=== PATIENT | male | born 1950 | race Caucasian/White ===

== ENCOUNTER → 2017-03-07 | Outpatient (CLI) | payer MEDICARE ==
[2017-03-07 09:32] LABS: CH 29.6; CHCM 33.4; HCT 49.9 % (39.0-53.0); HDW 2.96; HGB 16.4 gm/dL (13.0-17.5); MCH 29.3 pg (25.0-35.0); MCHC 32.8 g/dL (31.0-37.0); MCV 89.3 fL (80.0-100.0); Mean Platelet Volume 6.4; RBC 5.59 m/uL (4.30-5.90); RDW 14.3 % (11.5-15.5); WBC 7.1 k/uL (3.8-10.6)
[2017-03-07 09:48] LABS: ALT 27 U/L (21-72); AST 21 U/L (17-59); Alkaline Phosphatase 109 U/L (38-126); Anion Gap 17 mmol/L; Blood Urea Nitrogen 13 mg/dL (9-20); Calcium 9.4 mg/dL (8.4-10.2); Carbon Dioxide 25 mmol/L (22-30); Chloride 100 mmol/L (98-107); Cholesterol 162 mg/dL (<200); Creatine Kinase 64 U/L (55-170); Glucose 85 mg/dL (74-99); HDL Cholesterol 35 mg/dL (40-60); Non-African American GFR(MDRD) >60 (>60 ml/min/1.73 sqM); Potassium 3.7 mmol/L (3.5-5.1); Sodium 142 mmol/L (137-145); Total Bilirubin 1.1 mg/dL (0.2-1.3); Total Protein 8.3 g/dL (6.3-8.2); Triglycerides 125 mg/dL (<150)
[2017-03-07 11:54] LABS: Hemoglobin A1C 8.3 % (4.2-6.1)
== END | disposition home or self-care (01) ==
LOC: LABWHC1 06:58
PROVIDERS: ATTEND Family Medicine
DX: E11.9 Type 2 diabetes mellitus without complications (principal); I10 Essential (primary) hypertension; M19.90 Unspecified osteoarthritis, unspecified site
CPT/HCPCS: 36415; 80053; 80061; 82550; 83036; 85027

== ENCOUNTER 2017-03-28 09:15 | Emergency (ER) | payer MEDICARE ==
--- NOTE | 2017-03-28 09:58 | ED ---
General Adult HPI <SureshVincent - Last Filed: 03/28/17 15:18> - General Source: patient, RN notes reviewed Mode of arrival: ambulatory Limitations: no limitations <Los May - Last Filed: 03/28/17 18:30> - General Chief complaint: Recheck/Abnormal Lab/Rx Stated complaint: hemmeroid Time Seen by Provider: 03/28/17 09:33 - History of Present Illness Initial comments: Patient 66-year-old male who presents emergency room today with a chief complaint of a hemorrhoid. Patient does admit that over the last 2 days that increased pain. States it difficult time sleeping last night due to the pain. Patient states not seen any blood. He does admit that his had hemorrhoids in the past for this where he has to have them surgically incised. Patient does admit that he try to follow-up with his surgeon today called the office was advised come here to the emergency room for evaluation. Patient denies any other complaints or symptoms. Patient denies any recent fever, chills, shortness of breath, chest pain, back pain, abdominal pain, nausea or vomiting, numbness or tingling, dysuria or hematuria, constipation or diarrhea, headaches or visual changes, or any other complaints. (Los May) - Related Data Home Medications Medication Instructions Recorded Confirmed Aspirin 81 mg PO DAILY 03/28/17 03/28/17 Atenolol [Tenormin] 25 mg PO DAILY 03/28/17 03/28/17 Atorvastatin [Lipitor] 10 mg PO DAILY 03/28/17 03/28/17 Insulin Glargine,Hum.rec.anlog 115 unit SQ HS 03/28/17 03/28/17 [Lantus Solostar] Insulin Glulisine [Apidra Solostar] 10 units SQ W/SUPPER 03/28/17 03/28/17 Losartan/Hydrochlorothiazide 1 tab PO DAILY 03/28/17 03/28/17 [Losartan-Hctz 100-25 mg Tab] amLODIPine [Norvasc] 10 mg PO DAILY 03/28/17 03/28/17 metFORMIN HCL [Metformin HCl] 500 mg PO DAILY 03/28/17 03/28/17 Allergies Allergy/AdvReac Type Severity Reaction Status Date / Time No Known Allergies Allergy Unverified 03/28/17 09:32 Review of Systems ROS Other: All systems not noted in ROS Statement are negative. <Vincent Prince - Last Filed: 03/28/17 15:18> ROS Other: All systems not noted in ROS Statement are negative. <Los May - Last Filed: 03/28/17 18:30> ROS Statement: Those systems with pertinent positive or pertinent negative responses have been documented in the HPI. Past Medical History Past Medical History: Diabetes Mellitus, Hyperlipidemia, Hypertension History of Any Multi-Drug Resistant Organisms: None Reported Additional Past Surgical History / Comment(s): ganglion cyst Past Psychological History: No Psychological Hx Reported Smoking Status: Never smoker Past Alcohol Use History: None Reported Past Drug Use History: None Reported <Los May - Last Filed: 03/28/17 18:30> General Exam <Vincent Prince - Last Filed: 03/28/17 15:18> Limitations: no limitations <Los May - Last Filed: 03/28/17 18:30> - General Exam Comments Initial Comments: General: The patient is awake and alert, in no distress, and does not appear acutely ill. Eye: Pupils are equal, round and reactive to light, extra-ocular movements are intact. No nystagmus. There is normal conjunctiva bilaterally. No signs of icterus. Ears, nose, mouth and throat: There are moist mucous membranes and no oral lesions. Neck: The neck is supple, there is no tenderness or JVD. Cardiovascular: There is a regular rate and rhythm. No murmur, rub or gallop is appreciated. Respiratory: Lungs are clear to auscultation, respirations are non-labored, breath sounds are equal. No wheezes, stridor, rales, or rhonchi. Gastrointestinal: Soft, non-distended, non-tender abdomen without masses or organomegaly noted. There is no rebound or guarding present. No CVA tenderness. Bowel sounds are unremarkable. Musculoskeletal: Normal ROM, no tenderness. Strength 5/5. Sensation intact. Pulses equal bilaterally 2+. Neurological: A&O x 3. CN II-XII intact, There are no obvious motor or sensory deficits. Coordination appears grossly intact. Speech is normal. Skin: Skin is warm and dry and no rashes or lesions are noted. Psychiatric: Cooperative, appropriate mood & affect, normal judgment. : Patient does have large hemorrhoid nonthrombosed located on the right side measures approximately 2 cm. (Los May) Course <Vincent Prince - Last Filed: 03/28/17 15:18> <Los May - Last Filed: 03/28/17 18:30> Vital Signs 03/28/17 03/28/17 03/28/17 09:17 14:05 15:16 Temperature 99.2 F 97.9 F 98.2 F Pulse Rate 89 74 67 Respiratory 18 16 18 Rate Blood Pressure 162/77 156/78 154/78 O2 Sat by Pulse 96 95 96 Oximetry 03/28/17 16:38 Temperature Pulse Rate 81 Respiratory 18 Rate Blood Pressure 134/61 O2 Sat by Pulse 95 Oximetry - Reevaluation(s) Reevaluation #1: 03/28/17 11:22 Patient was earlier reexamined by myself, Dr. Prince. Patient does have a large right hemorrhoid approximately 3 cm at the 3 o'clock position without tenderness. Dr. Hinds has been paged. Dr. Dennis is covering as is currently in surgery. 03/28/17 15:18 Case was discussed with Dr. Dennis who will come evaluate the patient (Vincent Prince) Medical Decision Making <Vincent Prince - Last Filed: 03/28/17 15:18> <Los May - Last Filed: 03/28/17 18:30> - Medical Decision Making Patient was seen in the emergency room by Dr. Joel who did drain patient's hemorrhoid. Patient is feeling better. Patient will be discharged home advised follow-up with surgeon as directed. (Los May) Disposition <Vincent Prince - Last Filed: 03/28/17 15:18> Time of Disposition: 18:29 <Los May - Last Filed: 03/28/17 18:30> Clinical Impression: Hemorrhoid Disposition: HOME SELF-CARE Condition: Good Instructions: Hemorrhoids (ED) Additional Instructions: Please follow-up with surgeon as discussed here in the emergency room. Please return for any other concerns. Referrals: Blue Burks MD [Primary Care Provider] - 1-2 days Sofie Joel MD [STAFF PHYSICIAN] - 1-2 days
[2017-03-28 15:17] VITALS: RESP 18
--- NOTE | 2017-03-28 18:35 | P.PN ---
Progress Note - Text Patient seen and evaluated. Verbal consent obtained to proceed with incision of thrombosed hemorrhoid right lateral cushion. Blood loss minimal. Blood clot evaluated. Patient had immediate relief postprocedure. Patient to follow- up in the office in 2 weeks. Sitz baths advised. Bacitracin ointment to wound.
[2017-03-28 18:46] VITALS: BP 142/65; PULSE 71; TEMP 97.9
--- NOTE | 2017-03-28 19:59 | P.GSCN ---
History of Present Illness Consult date: 03/28/17 Reason for Consult: Thrombosed hemorrhoid Requesting physician: Vincent Prince History of present illness: The patient is a 66-year-old gentleman who presented with overnight history of increased discomfort while sleeping from a thrombosed hemorrhoid. He has previous thrombosed hemorrhoids excised at 2-3 times in the last 10 years. He initially called his provider's office and then was redirected to emergency room given the severity of his pain as well as severity of his presentation. He denies taking any anticoagulants. Now her presents to the emergency room for urgent surgical intervention. Review of Systems REVIEW OF ORGAN SYSTEMS: CONSTITUTIONAL: Denies any fever or chills. Denies recent weight loss or weight gain. HEENT: Denies any trouble with vision, hearing or nosebleeds. No difficulty swallowing. LYMPHATIC: The patient denies any lumps and bumps around the neck. ENDOCRINE: Denies any thyroid disorders. Has blood sugar glucose intolerance. RESPIRATORY: Denies pneumonia. Denies any troubles with breathing or dyspnea on exertion. CARDIOVASCULAR: Denies any chest pain, palpitations, or recent heart attacks. GASTROINTESTINAL: Previous history of multiple thrombosed hemorrhoids for the past with excision. GENITOURINARY: Denies any blood in urine or increased urinary frequency. MUSCULOSKELETAL: Has back pain, stiffness, joint arthritis. NEUROLOGIC: Denies any numbness or tingling along the distal extremities. No seizure disorders or headaches. PSYCHIATRIC: Denies depression or suidical ideation. HEMATOLOGIC: Denies any abnormal bleeding or bruising. Past Medical History Past Medical History: Diabetes Mellitus, Hyperlipidemia, Hypertension History of Any Multi-Drug Resistant Organisms: None Reported Additional Past Surgical History / Comment(s): ganglion cyst Past Psychological History: No Psychological Hx Reported Smoking Status: Never smoker Past Alcohol Use History: None Reported Past Drug Use History: None Reported Medications and Allergies Home Medications Medication Instructions Recorded Confirmed Type Aspirin 81 mg PO DAILY 03/28/17 03/28/17 History Atenolol [Tenormin] 25 mg PO DAILY 03/28/17 03/28/17 History Atorvastatin [Lipitor] 10 mg PO DAILY 03/28/17 03/28/17 History Insulin Glargine,Hum.rec.anlog 115 unit SQ HS 03/28/17 03/28/17 History [Lantus Solostar] Insulin Glulisine [Apidra Solostar] 10 units SQ W/SUPPER 03/28/17 03/28/17 History Losartan/Hydrochlorothiazide 1 tab PO DAILY 03/28/17 03/28/17 History [Losartan-Hctz 100-25 mg Tab] amLODIPine [Norvasc] 10 mg PO DAILY 03/28/17 03/28/17 History metFORMIN HCL [Metformin HCl] 500 mg PO DAILY 03/28/17 03/28/17 History Allergies Allergy/AdvReac Type Severity Reaction Status Date / Time No Known Allergies Allergy Unverified 03/28/17 09:32 Surgical - Exam Vital Signs Temp Pulse Resp BP Pulse Ox 99.2 F 89 18 162/77 96 03/28/17 09:17 03/28/17 09:17 03/28/17 09:03/28/17 09:03/28/17 09:17 GENERAL: Well developed and in moderate distress from his anorectal pain. HEENT: No sclera icterus. Extraocular movements grossly intact. Moist buccal mucosa. Head is atraumatic, normocephalic. Hears conversational speech. No nasal drainage. NECK: Supple without lymphadenopathy. No JV distention. CHEST: Non-labored respirations and equal bilateral excursions. CARDIOVASCULAR: Regular rate and rhythm. Palpable 2+ radial pulses. ABDOMEN: Soft, nontender. Nondistended. MUSCULOSKELETAL: No clubbing, cyanosis or edema. NEUROLOGIC: No focal or lateralizing signs. PSYCH: Appropriate affect. Alert and oriented to person, place and time. RECTUM: 3.5 cm right lateral thrombosed hemorrhoid without active bleeding. No anal fissures. Assessment and Plan (1) Grade IV hemorrhoids Status: Acute (2) Thrombosed external hemorrhoids Status: Acute (3) Diabetes type 2, controlled Status: Acute (4) Morbid obesity due to excess calories Status: Acute (5) BMI 35.0-35.9,adult Status: Acute (6) Hypertensive heart disease Status: Acute (7) Anorectal pain Status: Acute Plan: 1. I discussed benefits and risks of proceeding with an incision and drainage of his thrombosed hemorrhoid. Given the severity of his pain he had immediately given verbal consent to proceed. 2. Sitz bath twice daily recommended postprocedure. 3. Light activities to follow for 1 week. 4. Follow-up in the office in 1-2 weeks.
--- NOTE | 2017-03-28 20:06 | P.PCN ---
Date of Procedure: 03/28/17 Preoperative Diagnosis: Postoperative Diagnosis: Procedure(s) Performed: Implants: Indications for Procedure: Operative Findings: Description of Procedure: SURGEON: SOFIE JOEL MD WOOL SORTER: NONE. PREOPERATIVE DIAGNOSES: 1. Grade 4 complicated hemorrhoid. 2. Thrombosed external hemorrhoid. 3. Anorectal pain. POSTOPERATIVE DIAGNOSES: 1. Grade 4 complicated hemorrhoid. 2. Thrombosed external hemorrhoid. 3. Anorectal pain. PROCEDURE PERFORMED: 1. Incision and drainage of thrombosed hemorrhoid, right lateral cushion. ANESTHESIA: 3 mL 1% lidocaine plain. ESTIMATED BLOOD LOSS: 1 mL SPECIMENS: NONE. COMPLICATIONS: NONE. FINDINGS: 1. 3.5 cm external thrombosed hemorrhoid along right lateral cushion with 3-5 mL blood clot drained. INDICATIONS: The patient is a 66-year-old male who comes in with acute anorectal pain of over 24 hours. He reports severity of pain requiring urgent intervention. He reports thrombosed hemorrhoid. Benefits and risks were described including bleeding, infection and pain. Verbal consent was obtained. DESCRIPTION: After verbal consent, the patient was placed in right lateral decubitus position. The perineum was dressed with Betadine and 4 x 4 gauze and a standard sterile fashion. The hemorrhoidal tissue along the right lateral cushion was anesthetized with 3 mL of 1% lidocaine plain. After adequate analgesia, a #11 blade cruciate incision was made over the thrombosed hemorrhoid. Immediately approximately 5 mL of quite blood clot was drained from the thrombosed hemorrhoid. The patient had immediate relief. He had tolerated the procedure well. Betadine with 4 x 4 packing was placed. Postprocedure discharge instructions were reviewed including use of sitz bath and bacitracin ointment. Patient will follow-up in the office in 1-2 weeks. Plan - Discharge Summary Discharge Medication List Aspirin 81 mg PO DAILY 03/28/17 [History] Atenolol [Tenormin] 25 mg PO DAILY 03/28/17 [History] Atorvastatin [Lipitor] 10 mg PO DAILY 03/28/17 [History] Insulin Glargine,Hum.rec.anlog [Lantus Solostar] 115 unit SQ HS 03/28/17 [ History] Insulin Glulisine [Apidra Solostar] 10 units SQ W/SUPPER 03/28/17 [History] Losartan/Hydrochlorothiazide [Losartan-Hctz 100-25 mg Tab] 1 tab PO DAILY [History] amLODIPine [Norvasc] 10 mg PO DAILY 03/28/17 [History] metFORMIN HCL [Metformin HCl] 500 mg PO DAILY 03/28/17 [History] Follow up Appointment(s)/Referral(s): Sofie Joel MD [STAFF PHYSICIAN] - 1-2 days Blue Burks MD [Primary Care Provider] - 1-2 days Patient Instructions/Handouts: Hemorrhoids (ED) Activity/Diet/Wound Care/Special Instructions: Please follow-up with surgeon as discussed here in the emergency room. Please return for any other concerns. Sitz bath twice daily and after bowel movement. May add bacitracin ointment twice daily after cleansing area with soap and water. May remove packing after first bowel movement. Discharge Disposition: HOME SELF-CARE
== END 2017-03-28 18:46 | disposition home or self-care (01) ==
LOC: EC 09:15
DX: K64.8 Other hemorrhoids (principal); E11.9 Type 2 diabetes mellitus without complications; E78.5 Hyperlipidemia, unspecified; I10 Essential (primary) hypertension; Z79.82 Long term (current) use of aspirin; Z79.4 Long term (current) use of insulin; Z79.899 Other long term (current) drug therapy
CPT/HCPCS: 46083; 99283

== ENCOUNTER 2017-04-01 15:25 | Observation (INO) | payer MEDICARE ==
[2017-04-01 17:14] VITALS: BMI 35.5
[2017-04-01] MEDS ORDERED: LACTATED RINGERS 1,000 ML IV ONE (18:51)
[2017-04-01] MEDS ORDERED: DEXAMETHASONE SOD PHOS (MDV) 100 MG/10 ML VIAL ONE (19:13)
[2017-04-01] MEDS ORDERED: MIDAZOLAM 2 MG/2 ML VIAL ONE (19:13)
[2017-04-01] MEDS ORDERED: ONDANSETRON 4 MG/2 ML VIAL ONE (19:13)
[2017-04-01] MEDS ORDERED: PROPOFOL 10 MG/ML 20 ML VIAL IV ONE (19:13)
[2017-04-01] MEDS ORDERED: fentaNYL (PF) 50 MCG/ML 2 ML AMP ONE (19:13)
[2017-04-01] MEDS ORDERED: LIDOCAINE 1% INJ 10MG/ML (20 ML MDV) ONE (19:13)
[2017-04-01] MEDS ORDERED: SUCCINYLCHOLINE CHLORIDE 100 MG/5 ML SYR IV ONE (19:13)
[2017-04-01] MEDS ORDERED: SODIUM CHLORIDE 0.9% 50 ML with ceFAZolin 2,000 MG IV ONE ×2 (19:30)
[2017-04-01] MEDS ORDERED: LIDOCAINE 1% (PF) 10 MG/ML (30 ML SDV) SQ ONE (19:39)
--- NOTE | 2017-04-01 19:50 | P.OP ---
Date of Procedure: 04/01/17 Preoperative Diagnosis: Thrombosed hemorrhoid Postoperative Diagnosis: Same Procedure(s) Performed: Thrombectomy Implants: Anesthesia: RONAN Surgeon: Echo Hinds Estimated Blood Loss (ml): 5 Pathology: other (Hemorrhoidal skin, thrombus) Condition: stable Disposition: PACU Indications for Procedure: Painful thrombosed hemorrhoid Operative Findings: Thrombosed hemorrhoid Description of Procedure: Patient is a 66-year-old gentleman who was initially seen in the emergency room approximately 3 days ago for a thrombectomy was performed. Despite this he had continued swelling of the area of the hemorrhoids and was seen in the office earlier today where it was felt that he should undergo a thrombectomy in the operating room. The patient was taken to the operating room and following induction of anesthesia he was placed in the jackknife position. The proximal were taped open and the area was prepped and draped in a sterile fashion. The thrombosed hemorrhoid was in the right posterior lateral area. Incision was made over the skin of the thrombosed hemorrhoid and a portion of the skin was removed. A large clot was removed. The clot was approximately 3 cm x 1.5-2 cm in size. The wound was well irrigated and several smaller clots were identified and removed as well in the hemorrhoidal tissue. After being assured that hemostasis was attained using the electrocautery device the wound was again irrigated. At this point the wound was packed using iodoform gauze and a Vaseline gauze over this. The patient tolerated the procedure in stable condition. All instrument and sponge counts were correct at the end of the case.
--- NOTE | 2017-04-01 19:52 | P.DS ---
Providers Date of admission: 04/01/17 16:20 Attending physician: Thi Lou Primary care physician: Stated None Plan - Discharge Summary Discharge Medication List Aspirin 81 mg PO DAILY 03/28/17 [History] Atenolol [Tenormin] 25 mg PO DAILY 03/28/17 [History] Atorvastatin [Lipitor] 10 mg PO DAILY 03/28/17 [History] Insulin Glargine,Hum.rec.anlog [Lantus Solostar] 115 unit SQ HS 03/28/17 [ History] Insulin Glulisine [Apidra Solostar] 10 units SQ W/SUPPER 03/28/17 [History] Losartan/Hydrochlorothiazide [Losartan-Hctz 100-25 mg Tab] 1 tab PO DAILY [History] amLODIPine [Norvasc] 10 mg PO DAILY 03/28/17 [History] metFORMIN HCL [Metformin HCl] 500 mg PO DAILY 03/28/17 [History] Follow up Appointment(s)/Referral(s): Echo Hinds MD [STAFF PHYSICIAN] - 1 Week Activity/Diet/Wound Care/Special Instructions: Sitz baths twice a day Discharge Disposition: HOME SELF-CARE
[2017-04-01 20:09] LABS: Glucose,Whole Blood 168 mg/dL (75-99)
[2017-04-01] MEDS ORDERED: KETOROLAC 30 MG/ML 1 ML VIAL IVP ONE (20:10)
[2017-04-02 00:29] VITALS: RESP 18; TEMP 98.6
[2017-04-02 00:32] VITALS: BP 149/79; PULSE 72
== END 2017-04-02 00:34 | disposition home or self-care (01) ==
LOC: 5MS5E 16:20
PROVIDERS: ADMIT Surgery; ATTEND Surgery
DX: K64.5 Perianal venous thrombosis (principal); Z79.899 Other long term (current) drug therapy; Z79.82 Long term (current) use of aspirin; Z79.4 Long term (current) use of insulin; Z79.84 Long term (current) use of oral hypoglycemic drugs; E11.9 Type 2 diabetes mellitus without complications; I10 Essential (primary) hypertension
CPT/HCPCS: 88304; 46083; G0379; G0378; J2250; J2405; J2001 ×2; J3010; J1885; J0690; J1100; J0330; J2704

== ENCOUNTER → 2017-08-25 | Outpatient (CLI) | payer MEDICARE ==
[2017-08-25 08:11] LABS: CH 31.2; HCT 47.1 % (39.0-53.0); HDW 2.93; HGB 15.9 gm/dL (13.0-17.5); MCH 31.3 pg (25.0-35.0); MCHC 33.8 g/dL (31.0-37.0); MCV 92.5 fL (80.0-100.0); Mean Platelet Volume 6.8; RBC 5.09 m/uL (4.30-5.90); RDW 15.4 % (11.5-15.5); WBC 5.7 k/uL (3.8-10.6)
[2017-08-25 10:52] LABS: Hemoglobin A1C 8.4 % (4.2-6.1)
[2017-08-25 12:54] LABS: ALT 26 U/L (21-72); AST 15 U/L (17-59); Alkaline Phosphatase 115 U/L (38-126); Anion Gap 12 mmol/L; Blood Urea Nitrogen 13 mg/dL (9-20); Calcium 9.5 mg/dL (8.4-10.2); Carbon Dioxide 28 mmol/L (22-30); Chloride 101 mmol/L (98-107); Cholesterol 149 mg/dL (<200); Glucose 106 mg/dL (74-99); HDL Cholesterol 28 mg/dL (40-60); Non-African American GFR(MDRD) >60 (>60 ml/min/1.73 sqM); Potassium 3.7 mmol/L (3.5-5.1); Sodium 141 mmol/L (137-145); Total Bilirubin 0.8 mg/dL (0.2-1.3)
[2017-08-25 13:09] LABS: Prostate Specific Antigen 1.65 ng/mL (0.00-4.00)
== END | disposition home or self-care (01) ==
LOC: LABWHC1 07:03
PROVIDERS: ATTEND Family Medicine
DX: I10 Essential (primary) hypertension (principal); R35.1 Nocturia; M25.50 Pain in unspecified joint; E11.9 Type 2 diabetes mellitus without complications; E78.00 Pure hypercholesterolemia, unspecified
CPT/HCPCS: 36415; 80053; 80061; 83036; 84153; 85027

== ENCOUNTER → 2018-02-24 | Outpatient (CLI) | payer MEDICARE ==
[2018-02-24 08:05] LABS: HCT 46.8 % (39.0-53.0); HGB 15.9 gm/dL (13.0-17.5); MCHC 33.9 g/dL (31.0-37.0); MCV 85.6 fL (80.0-100.0); Mean Platelet Volume 6.6; Platelet Count 356 k/uL (150-450); RBC 5.47 m/uL (4.30-5.90); RDW 13.8 % (11.5-15.5); WBC 7.8 k/uL (3.8-10.6)
[2018-02-24 10:11] LABS: ALT 23 U/L (21-72); AST 17 U/L (17-59); Alkaline Phosphatase 107 U/L (38-126); Anion Gap 15 mmol/L; Blood Urea Nitrogen 13 mg/dL (9-20); Calcium 9.8 mg/dL (8.4-10.2); Carbon Dioxide 31 mmol/L (22-30); Chloride 99 mmol/L (98-107); Cholesterol 139 mg/dL (<200); Creatine Kinase 69 U/L (55-170); Glucose 67 mg/dL (74-99); HDL Cholesterol 31 mg/dL (40-60); LDL Cholesterol,Calculated 91 mg/dL (0-99); Potassium 3.7 mmol/L (3.5-5.1); Sodium 145 mmol/L (137-145); Total Bilirubin 0.8 mg/dL (0.2-1.3); Total Protein 6.8 g/dL (6.3-8.2); Triglycerides 87 mg/dL (<150)
[2018-02-24 10:39] LABS: Prostate Specific Antigen 2.13 ng/mL (0.00-4.00)
== END | disposition home or self-care (01) ==
LOC: LABWHC1 06:48
PROVIDERS: ATTEND Family Medicine
DX: I10 Essential (primary) hypertension (principal); E11.9 Type 2 diabetes mellitus without complications; E78.5 Hyperlipidemia, unspecified; R35.1 Nocturia; R07.9 Chest pain, unspecified
CPT/HCPCS: 36415; 80053; 80061; 82550; 83036; 84153; 84443; 85027

== ENCOUNTER 2018-04-07 09:27 | Day surgery (SDC) | payer MEDICARE ==
[2018-04-06 08:52] VITALS: BMI 33.9
[~2018-04-07 09:27] MED LIST: LACTATED RINGERS 1,000 ML IV SCH
[2018-04-07 10:17] VITALS: TEMP 98.6
[2018-04-07] MEDS ORDERED: LIDOCAINE 1% 20 ML VIAL (10MG/ML) FOR IV START INTRADERMA ONE (10:17)
[2018-04-07 10:22] LABS: Glucose,Whole Blood 100 mg/dL (75-99)
[2018-04-07] MEDS ORDERED: PROPOFOL 10 MG/ML 20 ML VIAL IV ONE (10:31)
--- NOTE | 2018-04-07 11:09 | P.PCN ---
Date of Procedure: 04/07/18 Procedure(s) Performed: Procedure: Total colonoscopy. Preoperative diagnosis: Screening for neoplasia. Postoperative diagnosis: Sigmoid diverticulosis with no evidence of acute diverticulitis, strictures, polyps or cancer. Preparation: HalfLytely prep. Sedation: Was provided by anesthesia. Brief clinical history: The patient is a 67-year-old male who is scheduled for this evaluation for screening for neoplasia. He had a prior exam more than 8 years ago. He has no abdominal complaints, bleeding or anemia. Procedure: With the patient on his left lateral decubitus position and after informed consent and adequate sedation, the perianal area was inspected and it did not show any fissures or fistulas. There were no masses felt on digital rectal examination. The Olympus CF Q160 L videocolonoscope was then inserted in the rectum in the usual fashion and was advanced without difficulty in the sigmoid and then all the way to the cecum. There was multiple diverticular orifices seen scattered in the sigmoid with no evidence of acute diverticulitis or strictures. No polyps or tumors were seen. The mucosa appeared healthy. I retroflexed the endoscope in the rectum before the endoscope was withdrawn. The patient tolerated the procedure well. Plan: The patient was reassured. Discussed dietary measures. He will follow- up with you as planned and I recommended repeat exam in 10 years.
[2018-04-07 11:40] VITALS: BP 125/73; PULSE 70; RESP 20
== END 2018-04-07 12:06 | disposition home or self-care (01) ==
LOC: ORWHC2ENDO 09:27
DX: Z12.11 Encounter for screening for malignant neoplasm of colon (principal); K57.30 Diverticulosis of large intestine without perforation or abscess without bleeding; E11.9 Type 2 diabetes mellitus without complications; E78.5 Hyperlipidemia, unspecified; I10 Essential (primary) hypertension; Z79.84 Long term (current) use of oral hypoglycemic drugs; Z79.82 Long term (current) use of aspirin; Z79.899 Other long term (current) drug therapy
CPT/HCPCS: J2704; G0121

== ENCOUNTER → 2018-08-26 | Outpatient (CLI) | payer MEDICARE ==
[2018-08-26 07:49] LABS: HCT 43.1 % (39.0-53.0); HGB 14.1 gm/dL (13.0-17.5); MCHC 32.6 g/dL (31.0-37.0); MCV 89.1 fL (80.0-100.0); Mean Platelet Volume 6.3; Platelet Count 327 k/uL (150-450); RBC 4.84 m/uL (4.30-5.90); RDW 14.1 % (11.5-15.5)
[2018-08-26 17:48] LABS: Albumin 4.2 g/dL (3.80-4.90); Albumin/Globulin Ratio 1.91 (1.20-2.10); Anion Gap 5.3 mmol/L (4.00-12.00); Calcium 9.4 mg/dL (8.7-10.3); Carbon Dioxide 33.7 mmol/L (21.6-31.8); Globulin 2.2 g/dL (2.1-3.7); Potassium 4.5 mmol/L (3.5-5.5); Total Bilirubin 0.7 mg/dL (0.2-1.2); Total Protein 6.4 g/dL (6.2-8.2)
[2018-08-26 17:55] LABS: Prostate Specific Antigen 1.8 ng/mL (0.0-4.5)
[2018-08-26 20:38] LABS: Hemoglobin A1C 7.6 % (4.0-6.0)
== END | disposition home or self-care (01) ==
LOC: LABWHC1 06:51
PROVIDERS: ATTEND Family Medicine
DX: E11.9 Type 2 diabetes mellitus without complications (principal); E78.00 Pure hypercholesterolemia, unspecified; R35.1 Nocturia; I10 Essential (primary) hypertension
CPT/HCPCS: 36415; 80053; 80061; 82550; 83036; 84153; 84443; 85027

== ENCOUNTER → 2019-01-28 | Outpatient (CLI) | payer MEDICARE ==
[2019-01-28 08:30] LABS: Basophils % (A) 1 %; Eosinophils # (A) 0.2 k/uL (0-0.7); Eosinophils % (A) 2 %; HCT 47.4 % (39.0-53.0); HGB 15.2 gm/dL (13.0-17.5); Lymphocytes # (A) 2.1 k/uL (1.0-4.8); Lymphocytes % (A) 27 %; MCH 28.4 pg (25.0-35.0); MCHC 32.1 g/dL (31.0-37.0); MCV 88.5 fL (80.0-100.0); Mean Platelet Volume 6.7; Monocytes # (A) 0.5 k/uL (0-1.0); Monocytes % (A) 6 %; Neutrophils # (A) 4.8 k/uL (1.3-7.7); Neutrophils % (A) 62 %; Platelet Count 310 k/uL (150-450); RBC 5.35 m/uL (4.30-5.90); RDW 14.7 % (11.5-15.5); WBC 7.8 k/uL (3.8-10.6)
[2019-01-28 11:07] LABS: Anion Gap 9 mmol/L; Blood Urea Nitrogen 11 mg/dL (9-20); Calcium 9.3 mg/dL (8.4-10.2); Carbon Dioxide 29 mmol/L (22-30); Chloride 100 mmol/L (98-107); Glucose 182 mg/dL (74-99); Sodium 138 mmol/L (137-145)
== END | disposition home or self-care (01) ==
LOC: LABPAT 07:22
PROVIDERS: ATTEND Urology
DX: Z01.812 Encounter for preprocedural laboratory examination (principal); Z01.818 Encounter for other preprocedural examination; N52.1 Erectile dysfunction due to diseases classified elsewhere; I10 Essential (primary) hypertension; E11.9 Type 2 diabetes mellitus without complications
CPT/HCPCS: 36415; 80048; 85025; 93005

== ENCOUNTER 2019-02-03 07:16 | Inpatient (IN) | payer MEDICARE ==
[2019-01-25 16:06] VITALS: BMI 34.5
[~2019-02-03 07:16] MED LIST changes: +GENTAMICIN 180 MG in SODIUM CHLORIDE 0.9% 100 ML IVPB ONE; +LEVOFLOXACIN 500MG-D5W PMX 500 MG in DEXTROSE/WATER 1 100ML.BAG IVPB ONE
[2019-02-03 07:57] LABS: Glucose,Whole Blood 141 mg/dL (75-99)
[2019-02-03] MEDS ORDERED: LIDOCAINE 1% 20 ML VIAL (10MG/ML) FOR IV START INTRADERMA ONE (08:00)
[2019-02-03] MEDS ORDERED: ONDANSETRON 4 MG/2 ML VIAL IVP ONE (08:01)
[2019-02-03] MEDS ORDERED: DEXAMETHASONE SOD PHOSPHATE 10 MG/ML 1 ML VIAL IV ONE (08:02)
[2019-02-03] MEDS ORDERED: SCOPOLAMINE 1.5MG/72HR PATCH TRANSDERM ONE (08:04)
--- NOTE | 2019-02-03 08:11 | P.GSHP ---
History of Present Illness H&P Date: 02/01/19 Chief Complaint: Erectile dysfunction The patient is a 68-year-old male with a history of erectile dysfunction which dates back at least 15 years. The patient has tried Cialis which was ineffective. He has also tried penile vasoactive injection therapy using a combination of prostaglandin E1, papaverine and Regitine without improvement. After reviewing treatment options the patient has elected to proceed with placement of an inflatable penile prosthesis for treatment of his erectile dysfunction. His erectile dysfunction is felt to be related to long-standing diabetes mellitus and hypertension. - Constitutional Constitutional: Denies weight gain, Denies weight loss - Cardiovascular Cardiovascular: Denies chest pain, Denies dyspnea on exertion, Denies leg edema, Denies palpitations, Denies shortness of breath - Respiratory Respiratory: Denies cough, Denies wheezing - Gastrointestinal Gastrointestinal: Denies abdominal pain, Denies change in bowel habits - Genitourinary (Male) Genitourinary: Reports as per HPI Past Medical History Past Medical History: Diabetes Mellitus, Hyperlipidemia, Hypertension History of Any Multi-Drug Resistant Organisms: None Reported Additional Past Surgical History / Comment(s): ganglion cyst, hemorrhoidectomy Past Anesthesia/Blood Transfusion Reactions: Previous Problems w/ Anesthesia Additional Past Anesthesia/Blood Transfusion Reaction / Comment(s): severe stomach cramping after hemorrhoid surgery for 24 hours, thinks was something to do w/anesthesia he was given Smoking Status: Never smoker - Past Family History Mother Family Medical History: No Reported History Medications and Allergies Home Medications Medication Instructions Recorded Confirmed Type Aspirin 81 mg PO DAILY 03/28/17 01/25/19 History Atenolol [Tenormin] 25 mg PO DAILY 03/28/17 01/25/19 History Atorvastatin [Lipitor] 10 mg PO DAILY 03/28/17 01/25/19 History Losartan/Hydrochlorothiazide 1 tab PO DAILY 03/28/17 01/25/19 History [Losartan-Hctz 100-25 mg Tab] metFORMIN HCL [Metformin HCl] 500 mg PO DAILY 03/28/17 01/25/19 History Multivitamin [Men's Multi-Vitamin] 1 each PO DAILY 04/06/18 01/25/19 History Fluticasone Nasal Norris [Flonase 2 spr EA NOSTRIL DAILY 01/25/19 01/25/19 History Nasal Norris] Insulin Glargine [Lantus] 102 unit SQ PC-LUNCH 01/25/19 01/25/19 History Insulin Glulisine [Apidra] 10 unit SQ PC-TID PRN 01/25/19 01/25/19 History amLODIPine [Norvasc] 10 mg PO DAILY 01/25/19 01/25/19 History Allergies Allergy/AdvReac Type Severity Reaction Status Date / Time No Known Allergies Allergy Verified 01/25/19 15:51 Surgical - Exam - General well developed, well nourished, no distress, obese - ENT no hearing loss - Neck no masses, no lymphadectomy - Respiratory normal expansion, clear to auscultation - Cardiovascular Rhythm: regular Abnormal Heart Sounds: no systolic murmur, no diastolic murmur - Abdomen Abdomen: soft, non tender, no organomegaly Hernia: none - Genitourinary normal penis with no external lesions, testicles non-tender Assessment and Plan (1) Male sexual dysfunction Narrative/Plan: The patient will undergo placement of an inflatable penile prosthesis performed under general anesthesia. He is aware of the operative risks which include a nesthesia, pain, bleeding, infection or erosion of the prosthesis which may require removal, and future mechanical dysfunction which may require revision. Status: Acute Code(s): N53.9 - UNSPECIFIED MALE SEXUAL DYSFUNCTION SNOMED Code(s): 5594993
[2019-02-03] MEDS ORDERED: SUCCINYLCHOLINE CHLORIDE 100 MG/5 ML SYR IV ONE (08:19)
[2019-02-03] MEDS ORDERED: LIDOCAINE 1% INJ 10MG/ML (20 ML MDV) ONE (08:19)
[2019-02-03] MEDS ORDERED: fentaNYL (PF) 50 MCG/ML 2 ML AMP ONE (08:19)
[2019-02-03] MEDS ORDERED: MIDAZOLAM 2 MG/2 ML VIAL ONE (08:19)
[2019-02-03] MEDS ORDERED: KETOROLAC 30 MG/ML 1 ML VIAL ONE (08:19)
[2019-02-03] MEDS ORDERED: ePHEDrine SULFATE/0.9% NACL/PF 50 MG/5 ML SYRINGE IV ONE (08:19)
[2019-02-03] MEDS ORDERED: PROPOFOL 10 MG/ML 20 ML VIAL IV ONE (08:19)
[2019-02-03] MEDS ORDERED: ceFAZolin 1,000 MG, GENTAMICIN 80 MG in SODIUM CHLORIDE 0.9% 1,000 ML IRRIGATION ONE (09:01)
--- NOTE | 2019-02-03 10:43 | P.OP ---
Date of Procedure: 02/03/19 Preoperative Diagnosis: Erectile dysfunction secondary to diabetes mellitus Postoperative Diagnosis: Erectile dysfunction secondary to diabetes mellitus Procedure(s) Performed: Placement of inflatable penile prosthesis Implants: [employer] CX inflatable penile prosthesis-18 cm with 2 cm rear tip extenders Anesthesia: RONAN Surgeon: Warren Monahan Insurance And Benefits Clerk #1: Blue Rivas Estimated Blood Loss (ml): 30 Pathology: none sent Condition: stable Disposition: PACU Indications for Procedure: The patient is a 68-year-old male with a history of erectile dysfunction dating back over 10 years. He has failed oral treatments as well as penile injection therapy. After reviewing treatment options the patient has elected to proceed with placement of an inflatable penile prosthesis. Description of Procedure: The patient was taken the operating suite where adequate general anesthesia via orotracheal intubation was instituted. The patient was placed in the supine position. Pneumatic compression stockings were applied to the lower legs. The hair in the suprapubic area and at the penile scrotal junction was clipped. The scrotum and groins and lower abdomen were prepped with Betadine soap, sprayed with Betadine solution and draped in a sterile fashion. A lower abdominal midline incision was made. Bleeding vessels were controlled using electrocautery. The base of the penis was developed using blunt and sharp dissection. The tunica albuginea of the right and left corporal bodies were exposed superior to the penopubic junction. 2 cm longitudinal incisions were made in the right and left corporal bodies distal to the penopubic junction. Minimal bleeding occurred from the corporal bodies consistent with his underlying erectile dysfunction. Corporal bodies were dilated proximally and distally with Hegar dilators to 13-Azerbaijani. Both corporal bodies measured 10 cm from the incision proximally and distally. A [employer] CX inflatable penile prosthesis with 18 cm corporal bodies and 2 cm rear-tip extenders was selected. The right and left inflatable cylinders were inserted into the respective corporal bodies using the insertion tool. The corporotomies were then closed using running 3-0 PDS. The linea alba was incised superior to the pubis. The rectus muscles were retracted laterally and the pubovesical space was developed using blunt dissection. The fluid reservoir was placed in the retropubic space and the tubing was tunneled out through the abdominal wall medial to the right inguinal canal. 65 mL of sterile saline was placed in the reservoir and the reservoir was checked to ensure that the fluid was not under pressure. The linea alba was then reapproximated using interrupted 0 PDS placed in a [id number] fashion. The pump and inflatable cylinders had previously been filled with normal saline and all air evacuated. The tubing between the pump and reservoir was then connected using a straight connector. The prosthesis was inflated and deflated and appeared to function well with good position of both inflatable cylinders. A space was then made in the right scrotum anterolateral to the testicle and the pump was placed in this region. The tubing was then buried in the suprapubic fat with 3-0 Vicryl. The wound was thoroughly irrigated with antibiotic solution throughout the case and at the completion of the case. The skin was then closed using shellie. A 16-Azerbaijani straight catheter was passed through the urethra into the bladder and approximate 90 mL of clear urine was drained. Sterile dressing was then applied to the suprapubic area. The patient tolerated procedure well and left the operative room awake and in satisfactory condition blood loss was less than 30 mL. Final sponge needle and instrument counts reported as correct. The patient will be discharged later today if comfortable and will be seen back in follow-up in one week.
[2019-02-03 10:44] VITALS: TEMP 97.2
[2019-02-03 11:09] LABS: Glucose,Whole Blood 185 mg/dL (75-99)
[2019-02-03] MEDS ORDERED: Acetaminophen-Codeine 300-30mg TAB PO ONE (11:33)
[2019-02-03 11:38] VITALS: RESP 18
[2019-02-03 12:16] VITALS: BP 134/81; PULSE 65
== END 2019-02-03 13:11 | disposition home or self-care (01) | DRG 989 ==
LOC: 2ORMAIN 07:16
PROVIDERS: ADMIT Urology; ATTEND Urology
PROC: 0VUS0JZ Supplement Penis with Synthetic Substitute, Open Approach (ICD-10-PCS; principal; 2019-02-03 08:30)
DX: E11.69 Type 2 diabetes mellitus with other specified complication (principal); E78.5 Hyperlipidemia, unspecified; N52.1 Erectile dysfunction due to diseases classified elsewhere; E66.9 Obesity, unspecified; I10 Essential (primary) hypertension; Z68.34 Body mass index [BMI] 34.0-34.9, adult; Z79.82 Long term (current) use of aspirin; Z79.899 Other long term (current) drug therapy; Z79.4 Long term (current) use of insulin

== ENCOUNTER → 2019-08-11 | Outpatient (CLI) | payer MEDICARE ==
[2019-08-11 08:37] LABS: HCT 47.7 % (39.0-53.0); HGB 15.2 gm/dL (13.0-17.5); MCH 29.1 pg (25.0-35.0); MCHC 31.8 g/dL (31.0-37.0); MCV 91.4 fL (80.0-100.0); Mean Platelet Volume 6.5; Platelet Count 359 k/uL (150-450); RBC 5.22 m/uL (4.30-5.90); RDW 14.3 % (11.5-15.5); WBC 7.6 k/uL (3.8-10.6)
[2019-08-11 16:57] LABS: African American GFR (CKD) 79.5 (60.0-200.0); Albumin 4.2 g/dL (3.80-4.90); Anion Gap 14.5 mmol/L (4.00-12.00); BUN/Creat Ratio 12.73 Ratio (12.00-20.00); Carbon Dioxide 28.5 mmol/L (21.6-31.8); Chol/HDL Ratio 4.68; Globulin 2.1 g/dL (1.6-3.3); Potassium 4.6 mmol/L (3.5-5.5); Total Bilirubin 0.8 mg/dL (0.2-1.2); Total Protein 6.3 g/dL (6.2-8.2)
[2019-08-11 17:20] LABS: Calcium 9.4 mg/dL (8.7-10.3)
[2019-08-11 19:25] LABS: Hemoglobin A1C 8.5 % (4.0-6.0)
== END | disposition home or self-care (01) ==
LOC: LABWHC1 07:07
PROVIDERS: ATTEND Family Medicine
DX: I10 Essential (primary) hypertension (principal); E11.9 Type 2 diabetes mellitus without complications; E78.5 Hyperlipidemia, unspecified; E66.9 Obesity, unspecified; R35.1 Nocturia
CPT/HCPCS: 36415; 80053; 80061; 83036; 84153; 85027

== ENCOUNTER 2020-10-12 17:40 | Inpatient (IN) | payer MEDICARE ==
[2020-10-12 18:57] LABS: Basophils # (A) 0.1 k/uL (0-0.2); Basophils % (A) 2 %; Eosinophils % (A) 0 %; HCT 41.8 % (39.0-53.0); HGB 14.6 gm/dL (13.0-17.5); Lymphocytes # (A) 0.5 k/uL (1.0-4.8); Lymphocytes % (A) 6 %; MCH 29.7 pg (25.0-35.0); MCHC 34.9 g/dL (31.0-37.0); MCV 84.9 fL (80.0-100.0); Mean Platelet Volume 7.2; Monocytes # (A) 0.5 k/uL (0-1.0); Monocytes % (A) 6 %; Neutrophils # (A) 6.8 k/uL (1.3-7.7); Neutrophils % (A) 84 %; Platelet Count 330 k/uL (150-450); RBC 4.92 m/uL (4.30-5.90); RDW 13.3 % (11.5-15.5); WBC 8.1 k/uL (3.8-10.6)
[2020-10-12 19:05] LABS: Albumin 3.5 g/dL (3.5-5.0); Calcium 8.5 mg/dL (8.4-10.2); Total Bilirubin 0.7 mg/dL (0.2-1.3); Total Protein 6.8 g/dL (6.3-8.2)
[2020-10-12] MEDS ORDERED: ACETAMINOPHEN TAB 325 MG TAB PO STA (19:06)
[2020-10-12 19:12] LABS: Potassium 4.1 mmol/L (3.5-5.1)
--- NOTE | 2020-10-12 19:18 | XR ---
EXAMINATION: XR chest 1V portable DATE AND TIME: 10/12/2020 6:47 PM CLINICAL INDICATION: PHH; sob TECHNIQUE: AP upright portable COMPARISON: 07/13/2013 FINDINGS: Apices are clear, but the mid lung zones and lower lung zones show moderate ill-defined consolidative opacities in the periphery, findings consistent with pneumonia. The pleural spaces are negative. The cardiac silhouette is not enlarged. The remainder of the mediastinal silhouette is unremarkable. The skeletal structures and soft tissues are negative for acute findings. IMPRESSION: Bilateral mid and lower lung zone prominent infiltrates.
--- NOTE | 2020-10-12 19:19 | ED ---
SOB HPI - General Chief Complaint: Shortness of Breath Stated Complaint: SOB/Aches/Fall Time Seen by Provider: 10/12/20 17:40 Source: patient Mode of arrival: ambulatory Limitations: no limitations - History of Present Illness Initial Comments: Patient is a 70-year-old male past medical history of hypertension, diabetes who presents to the emergency department with reported body aches, shortness of breath for the past 10 days. Patient went to [facility] on Friday and was swabbed for Covid. States he has not received his results yet. He continues to remain short of breath with a poor appetite. States he hasn't eaten anything in 3 days. Denies previous history of lung disease. Admits to nonproductive cough. No chest pain. No lower extremity swelling. Admits to fevers. No vomiting or diarrhea. No other alleviating, precipitating or modifying factors - Related Data Home Medications Medication Instructions Recorded Confirmed Atorvastatin [Lipitor] 10 mg PO DAILY 03/28/17 10/12/20 Losartan/Hydrochlorothiazide 1 tab PO DAILY 03/28/17 10/12/20 [Losartan-Hctz 100-25 mg Tab] atenoloL [Tenormin] 25 mg PO DAILY 03/28/17 10/12/20 metFORMIN HCL [Metformin HCl] 500 mg PO DAILY 03/28/17 10/12/20 amLODIPine [Norvasc] 10 mg PO DAILY 01/25/19 10/12/20 Ascorbic Acid [Vitamin C] 1,000 mg PO DAILY 10/12/20 10/12/20 Aspirin [Adult Low Dose Aspirin EC] 81 mg PO DAILY 10/12/20 10/12/20 Cholecalciferol [Vitamin D3 (25 2,000 unit PO DAILY 10/12/20 10/12/20 Mcg = 1000 Iu)] Insulin Glargine,Hum.rec.anlog 80 unit SQ DAILY 10/12/20 10/12/20 [Lantus Solostar] Insulin Glulisine [Apidra Solostar] 10 unit SQ HS 10/12/20 10/12/20 Promethazine/Dextromethorphan 5 ml PO Q4H PRN 10/12/20 10/12/20 [Promethazine-Dm 6.25-15 mg/5Ml] Zicam Rapid Melt 1 tab PO DAILY 10/12/20 10/12/20 Previous Rx's Medication Instructions Recorded Albuterol Inhaler [Ventolin Hfa 2 puff INHALATION RT-QID #1 puff 10/15/20 Inhaler] Ascorbic Acid [Vitamin C] 1,000 mg PO DAILY #10 tab 10/15/20 Pantoprazole [Protonix] 40 mg PO AC-BRKFST #30 tablet. 10/15/20 Zinc Sulfate [Orazinc] 220 mg PO DAILY #10 cap 10/15/20 dexAMETHasone [Hexadrol] 6 mg PO DAILY #4 tab 10/15/20 Allergies Allergy/AdvReac Type Severity Reaction Status Date / Time No Known Allergies Allergy Verified 10/12/20 21:09 Review of Systems ROS Statement: Those systems with pertinent positive or pertinent negative responses have been documented in the HPI. ROS Other: All systems not noted in ROS Statement are negative. Past Medical History Past Medical History: Diabetes Mellitus, Hyperlipidemia, Hypertension, Sleep Apnea/CPAP/BIPAP Additional Past Medical History / Comment(s): "pre skin cancer", vertigo x 2 History of Any Multi-Drug Resistant Organisms: None Reported Past Surgical History: Orthopedic Surgery, Tonsillectomy Additional Past Surgical History / Comment(s): ganglion cyst x 5 blanca hands, hemorrhoidectomy, skin "pre cancer" removed from face, arthroscopy rt knee Past Anesthesia/Blood Transfusion Reactions: Previous Problems w/ Anesthesia, Motion Sickness Additional Past Anesthesia/Blood Transfusion Reaction / Comment(s): severe stomach cramping after hemorrhoid surgery for 24 hours, thinks was something to do w/anesthesia he was given. previous anesthesia record on chart Past Psychological History: No Psychological Hx Reported Smoking Status: Never smoker Past Alcohol Use History: None Reported Past Drug Use History: None Reported - Past Family History Mother Family Medical History: No Reported History General Exam Limitations: no limitations General appearance: alert, in no apparent distress Head exam: Present: atraumatic, normocephalic, normal inspection Eye exam: Present: normal appearance, PERRL, EOMI. Absent: scleral icterus, conjunctival injection, periorbital swelling ENT exam: Present: normal exam, mucous membranes moist Neck exam: Present: normal inspection. Absent: tenderness, meningismus, lymphadenopathy Respiratory exam: Present: normal lung sounds bilaterally. Absent: respiratory distress, wheezes, rales, rhonchi, stridor Cardiovascular Exam: Present: normal rhythm, tachycardia, normal heart sounds. Absent: systolic murmur, diastolic murmur, rubs, gallop, clicks GI/Abdominal exam: Present: soft, normal bowel sounds. Absent: distended, tenderness, guarding, rebound, rigid Extremities exam: Present: normal inspection, full ROM, normal capillary refill. Absent: tenderness, pedal edema, joint swelling, calf tenderness Back exam: Present: normal inspection Neurological exam: Present: alert, oriented X3, CN II-XII intact Psychiatric exam: Present: normal affect, normal mood Skin exam: Present: warm, dry, intact, normal color. Absent: rash Course Vital Signs 10/12/20 10/12/20 10/12/20 17:42 19:44 21:06 Temperature 103 F H 102.0 F H 99.7 F H Pulse Rate 106 H 100 104 H Respiratory 18 20 Rate Blood Pressure 153/72 164/87 153/79 O2 Sat by Pulse 94 L 92 L Oximetry 10/12/20 10/12/20 21:10 21:19 Temperature 99.7 F H Pulse Rate 104 H Respiratory 20 20 Rate Blood Pressure 153/79 O2 Sat by Pulse 92 L Oximetry Medical Decision Making - Medical Decision Making Upon arrival patient is placed into room 26. A thorough history and physical exam was performed. Patient does arrive with a pulse ox of 94%. States he has been falling into the high 80s at home. Patient had an IV established. Tylenol was given for fever control. Laboratory studies are conducted. Patient is positive for Covid. Chest x-ray was performed which demonstrates bilateral mid and lower lung lobe infiltrates. Results are discussed with the patient. As he does have episodes of hypoxia at home I did recommend overnight observation for which the patient did agree to. We will admit the patient to Dr. Mills. Dr. Tapia placed on consult. Patient was taken to the floor in stable condition - Lab Data Result diagrams: 10/13/20 07:06 10/13/20 07:06 Lab Results 10/12/20 10/12/20 10/12/20 Range/Units 18:32 18:32 18:32 WBC 8.1 (3.8-10.6) k/uL RBC 4.92 (4.30-5.90) m/uL Hgb 14.6 (13.0-17.5) gm/dL Hct 41.8 (39.0-53.0) % MCV 84.9 (80.0-100.0) fL MCH 29.7 (25.0-35.0) pg MCHC 34.9 (31.0-37.0) g/dL RDW 13.3 (11.5-15.5) % Plt Count 330 (150-450) k/uL MPV 7.2 Neutrophils % 84 % Lymphocytes % 6 % Monocytes % 6 % Eosinophils % 0 % Basophils % 2 % Neutrophils # 6.8 (1.3-7.7) k/uL Lymphocytes # 0.5 L (1.0-4.8) k/uL Monocytes # 0.5 (0-1.0) k/uL Eosinophils # 0.0 (0-0.7) k/uL Basophils # 0.1 (0-0.2) k/uL PT 10.5 (9.0-12.0) sec INR 1.0 (<1.2) APTT 27.6 (22.0-30.0) sec D-Dimer 0.89 H (<0.60) mg/L FEU Sodium 133 L (137-145) mmol/L Potassium 4.1 (3.5-5.1) mmol/L Chloride 97 L (98-107) mmol/L Carbon Dioxide 26 (22-30) mmol/L Anion Gap 10 mmol/L BUN 25 H (9-20) mg/dL Creatinine 1.30 H (0.66-1.25) mg/dL Est GFR (CKD-EPI)AfAm 64 (>60 ml/min/1.73 sqM) Est GFR (CKD-EPI)NonAf 55 (>60 ml/min/1.73 sqM) Glucose 267 H (74-99) mg/dL Plasma Lactic Acid Kenton (0.7-2.0) mmol/L Calcium 8.5 (8.4-10.2) mg/dL Total Bilirubin 0.7 (0.2-1.3) mg/dL AST 49 (17-59) U/L ALT 22 (4-49) U/L Alkaline Phosphatase 95 (38-126) U/L Troponin I (0.000-0.034) ng/mL NT-Pro-B Natriuret Pep pg/mL Total Protein 6.8 (6.3-8.2) g/dL Albumin 3.5 (3.5-5.0) g/dL Influenza Type A (PCR) (Not Detectd) Influenza Type B (PCR) (Not Detectd) RSV (PCR) (Not Detectd) SARS-CoV-2 (PCR) (Not Detectd) 10/12/20 10/12/20 10/12/20 Range/Units 18:32 18:32 18:32 WBC (3.8-10.6) k/uL RBC (4.30-5.90) m/uL Hgb (13.0-17.5) gm/dL Hct (39.0-53.0) % MCV (80.0-100.0) fL MCH (25.0-35.0) pg MCHC (31.0-37.0) g/dL RDW (11.5-15.5) % Plt Count (150-450) k/uL MPV Neutrophils % % Lymphocytes % % Monocytes % % Eosinophils % % Basophils % % Neutrophils # (1.3-7.7) k/uL Lymphocytes # (1.0-4.8) k/uL Monocytes # (0-1.0) k/uL Eosinophils # (0-0.7) k/uL Basophils # (0-0.2) k/uL PT (9.0-12.0) sec INR (<1.2) APTT (22.0-30.0) sec D-Dimer (<0.60) mg/L FEU Sodium (137-145) mmol/L Potassium (3.5-5.1) mmol/L Chloride (98-107) mmol/L Carbon Dioxide (22-30) mmol/L Anion Gap mmol/L BUN (9-20) mg/dL Creatinine (0.66-1.25) mg/dL Est GFR (CKD-EPI)AfAm (>60 ml/min/1.73 sqM) Est GFR (CKD-EPI)NonAf (>60 ml/min/1.73 sqM) Glucose (74-99) mg/dL Plasma Lactic Acid Kenton 1.3 (0.7-2.0) mmol/L Calcium (8.4-10.2) mg/dL Total Bilirubin (0.2-1.3) mg/dL AST (17-59) U/L ALT (4-49) U/L Alkaline Phosphatase (38-126) U/L Troponin I <0.012 (0.000-0.034) ng/mL NT-Pro-B Natriuret Pep 138 pg/mL Total Protein (6.3-8.2) g/dL Albumin (3.5-5.0) g/dL Influenza Type A (PCR) (Not Detectd) Influenza Type B (PCR) (Not Detectd) RSV (PCR) (Not Detectd) SARS-CoV-2 (PCR) (Not Detectd) 10/12/20 Range/Units 18:32 WBC (3.8-10.6) k/uL RBC (4.30-5.90) m/uL Hgb (13.0-17.5) gm/dL Hct (39.0-53.0) % MCV (80.0-100.0) fL MCH (25.0-35.0) pg MCHC (31.0-37.0) g/dL RDW (11.5-15.5) % Plt Count (150-450) k/uL MPV Neutrophils % % Lymphocytes % % Monocytes % % Eosinophils % % Basophils % % Neutrophils # (1.3-7.7) k/uL Lymphocytes # (1.0-4.8) k/uL Monocytes # (0-1.0) k/uL Eosinophils # (0-0.7) k/uL Basophils # (0-0.2) k/uL PT (9.0-12.0) sec INR (<1.2) APTT (22.0-30.0) sec D-Dimer (<0.60) mg/L FEU Sodium (137-145) mmol/L Potassium (3.5-5.1) mmol/L Chloride (98-107) mmol/L Carbon Dioxide (22-30) mmol/L Anion Gap mmol/L BUN (9-20) mg/dL Creatinine (0.66-1.25) mg/dL Est GFR (CKD-EPI)AfAm (>60 ml/min/1.73 sqM) Est GFR (CKD-EPI)NonAf (>60 ml/min/1.73 sqM) Glucose (74-99) mg/dL Plasma Lactic Acid Kenton (0.7-2.0) mmol/L Calcium (8.4-10.2) mg/dL Total Bilirubin (0.2-1.3) mg/dL AST (17-59) U/L ALT (4-49) U/L Alkaline Phosphatase (38-126) U/L Troponin I (0.000-0.034) ng/mL NT-Pro-B Natriuret Pep pg/mL Total Protein (6.3-8.2) g/dL Albumin (3.5-5.0) g/dL Influenza Type A (PCR) Not Detected (Not Detectd) Influenza Type B (PCR) Not Detected (Not Detectd) RSV (PCR) Not Detected (Not Detectd) SARS-CoV-2 (PCR) Detected A (Not Detectd) - EKG Data EKG Comments: EKG demonstrates a sinus tachycardia with a ventricular rate of 103. SD int erval is 156. QRS 94. QTC of 442. PVCs present. No acute ST segment elevations or depressions Disposition Clinical Impression: Hypoxia, Pyrexia, COVID-19 Disposition: ADMITTED IP TO THIS HOSP Condition: Stable Is patient prescribed a controlled substance at d/c from ED?: No Decision to Admit Reason: Admit from EC Decision Date: 10/12/20 Decision Time: 20:30
[2020-10-12 19:38] LABS: Partial Thromboplastin Time 27.6 sec (22.0-30.0); Prothrombin Time 10.5 sec (9.0-12.0)
[2020-10-12 19:45] LABS: D-Dimer 0.89 mg/L FEU (<0.60)
[2020-10-12] MEDS ORDERED: dexAMETHasone 2 MG TAB PO STA (20:27)
[2020-10-12] MEDS ORDERED: ACETAMINOPHEN TAB 325 MG TAB PO PRN (20:30)
[2020-10-12] MEDS ORDERED: NALOXONE 0.4 MG/ML 1 ML VIAL IV PRN (20:30)
[2020-10-12] MEDS ORDERED: SODIUM CHLORIDE 0.9% 1,000 ML IV STA (20:42)
[2020-10-12] MEDS: ENOXAPARIN 40 MG/0.4 ML SYRINGE SQ SCH (21:06)
[2020-10-12 21:56] LABS: Glucose,Whole Blood 243 mg/dL (75-99)
[2020-10-12] MEDS: INSULIN ASPART (NovoLOG) 100 UNIT/ML VIAL SQ SCH (23:57)
[2020-10-13] MEDS ORDERED: guaiFENesin-DM 100-10MG/5ML 10 ML CUP PO PRN
[2020-10-13] MEDS ORDERED: guaiFENesin-Coden 100-10MG/5ML 10 ML CUP PO PRN (07:58)
[2020-10-13 08:00] LABS: Basophils # (A) 0.1 k/uL (0-0.2); Basophils % (A) 2 %; Eosinophils % (A) 0 %; HCT 44.3 % (39.0-53.0); HGB 14.9 gm/dL (13.0-17.5); Lymphocytes # (A) 0.4 k/uL (1.0-4.8); Lymphocytes % (A) 9 %; MCH 29.5 pg (25.0-35.0); MCHC 33.7 g/dL (31.0-37.0); MCV 87.5 fL (80.0-100.0); Monocytes # (A) 0.2 k/uL (0-1.0); Monocytes % (A) 4 %; Neutrophils % (A) 82 %; Platelet Count 301 k/uL (150-450); RBC 5.07 m/uL (4.30-5.90); RDW 13.4 % (11.5-15.5); WBC 4.9 k/uL (3.8-10.6)
[2020-10-13] MEDS ORDERED: CHOLECALCIFEROL 1,000 UNIT TAB PO SCH (09:00)
[2020-10-13] MEDS ORDERED: [UNRECOGNIZED DRUG - OTHER] PO SCH (09:00)
[2020-10-13 09:21] LABS: Glucose,Whole Blood 353 mg/dL (75-99)
[2020-10-13] MEDS: ASCORBIC ACID 500 MG TAB PO SCH ×2 (09:44→09:48)
[2020-10-13] MEDS: dexAMETHasone 2 MG TAB PO SCH (09:44)
[2020-10-13] MEDS: ZINC SULFATE 220 MG CAP PO SCH (09:45)
[2020-10-13] MEDS: metFORMIN 500 MG TAB PO SCH (09:45)
[2020-10-13] MEDS: ASPIRIN 81 MG PO SCH (09:45)
[2020-10-13] MEDS: atenoloL 25 MG TAB PO SCH (09:45)
[2020-10-13] MEDS: CHOLECALCIFEROL 1,000 UNIT TAB PO SCH (09:45)
[2020-10-13] MEDS: ATORVASTATIN 10 MG TAB PO SCH (09:45)
[2020-10-13] MEDS: amLODIPine 10 MG TAB PO SCH (09:45)
[2020-10-13] MEDS: INSULIN DETEMIR (LEVEMIR) 100 UNIT/ML SYR SQ SCH (09:46)
[2020-10-13] MEDS: INSULIN ASPART (NovoLOG) 100 UNIT/ML VIAL SQ SCH ×4 (09:46→20:17)
[2020-10-13] MEDS: ENOXAPARIN 40 MG/0.4 ML SYRINGE SQ SCH (09:46)
[2020-10-13] MEDS: LOSARTAN-HCTZ 50-12.5 MG 1 EACH TAB PO SCH (10:01)
[2020-10-13 11:03] LABS: African American GFR (CKD) 70.6 (60.0-200.0); Anion Gap 12.6 mmol/L (4.00-12.00); BUN/Creat Ratio 23.33 Ratio (12.00-20.00); Calcium 8.7 mg/dL (8.7-10.3); Carbon Dioxide 24.4 mmol/L (21.6-31.8); Non-African American GFR(CKD) 60.9 (60.0-200.0)
[2020-10-13 11:28] LABS: Glucose,Whole Blood 285 mg/dL (75-99)
--- NOTE | 2020-10-13 11:34 | P.HPIM ---
History of Present Illness H&P Date: 10/13/20 Chief Complaint: LIZETT HISTORY OF PRESENT ILLNESS This is a 70-year-old male patient of Dr. Blue Burks with past medical history of hypertension, hyperlipidemia, diabetes mellitus type 2, obstructive sleep apnea with CPAP. Patient gives history of starting with a cough 14 days ago. He then developed difficulty breathing and fever. He denies any chest pain. He denies any nausea, vomiting diarrhea. His breathing and cough continued to worsen and he went to [facility] on Friday and was tested for Covid but did not receive test results. Patient unfortunately continued to worsen and came in to [facility] emergency center for evaluation. Temperature was 103, heart rate 106, blood pressure 153/72, pulse ox 94% on room air. CBC was normal except for lymphocytes and 0.5. COVID-19 positive. Influenza testing negative. RSV negative. Troponin was negative. EKG was a sinus rhythm with PACs. Chest x-ray reveals bilateral mid and lower lung zone prominent infiltrates. Patient was started on vitamin C, vitamin D, zinc, Lovenox 40 mg subcu daily and dexamethasone 6 mg oral daily, consult with pulmonary medicine and infectious disease. [facility]. REVIEW OF SYSTEMS Constitutional: No fever, no chills, no night sweats. No weight change. No weakness, fatigue or lethargy. No daytime sleepiness. EENT: No headache. No blurred vision or double vision, no loss of vision. No loss of Hearing, no ringing in the ears, no dizziness. No nasal drainage or congestion. No epistaxis. No sore throat. Lungs: No shortness of breath, cough, no sputum production. No wheezing. Cardiovascular: No chest pain, no lower extremity edema. No palpitations. No paroxysmal nocturnal dyspnea. No orthopnea. No lightheadedness or dizziness. No syncopal episodes. Abdominal: No abdominal pain. No nausea, vomiting. No diarrhea. No constipation. No bloody or tarry stools.. No loss of appetite. Genitourinary: No dysuria, increased frequency, urgency. No urinary retention. Musculoskeletal: No myalgias. No muscle weakness, no gait dysfunction, no frequent falls. No back pain. No neck pain. Integumentary: No wounds, no lesions. No rash or pruritus. No unusual bruising. No change in hair or nails. Neurologic: No aphasia. No facial droop. No change in mentation. No head injury. No headache. No paralysis. No paresthesia. Psychiatric: No depression. No anxiety. No mood swings. Endocrine: No abnormal blood sugars. No weight change. No excessive sweating or thirst. No cold intolerance. SOCIAL HISTORY The patient is a lifelong nonsmoker, no alcohol abuse, no marijuana or illicit drug use. He is and lives at home with his . 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 He has a CPAP at home. No nebulizer. FAMILY HISTORY Mother at age 85 from a brain hemorrhage. Father at age 93 from head trauma. Patient has a total of 4 siblings with no major medical problems. He has 3 children with no major medical problems. PHYSICAL EXAMINATION Gen: This is a 70-year-old male patient. He is resting in bed appears to be comfortable. No acute respiratory distress noted. HEENT: Head is atraumatic, normocephalic. Pupils equal, round. Sclerae is anicteric. NECK: Supple. No JVD. No lymphadenopathy. No thyromegaly. LUNGS: Diminished in the bases bilaterally with expiratory wheeze. No intercostal retractions. HEART: Regular rate and rhythm. No murmur. ABDOMEN: Soft. Bowel sounds are present. No masses. No tenderness. EXTREMITIES: Trace bilateral pedal edema. No calf tenderness. NEUROLOGICAL: Patient is awake, alert and oriented x3. Cranial nerves 2 through 12 are grossly intact. ASSESSMENT AND PLAN 1. Sepsis secondary to acute Covid 19 bilateral pneumonia. Continue vitamin C, vitamin D, zinc, Lovenox 40 mg subcu daily, dexamethasone 6 mg oral daily. Consult with infectious disease and pulmonary medicine. Patient is out of timeframe for Remdesivir. Patient started on Robitussin with codeine. 2. Diabetes mellitus type 2. Continue Levemir 50 units daily, NovoLog scale, metformin 500 mg daily. 3. Hypertension. Continue atenolol 25 mg daily, Norvasc 10 mg daily. 4. Hyperlipidemia. Continue atorvastatin 10 mg daily. 5. Obstructive sleep apnea with CPAP. 6. Chronic kidney disease stage II. 7. GI prophylaxis. Protonix. 8. DVT prophylaxis. Lovenox. Patient will be admitted to the hospital for a minimum of 2 night stay. DISCHARGE PLAN Most likely home, possible home care needs. Impression and plan of care have been directed as dictated by the signing physician. Gabby Morrissey nurse practitioner acting as scribe for signing physician. Past Medical History Past Medical History: Diabetes Mellitus, Hyperlipidemia, Hypertension, Sleep Apnea/CPAP/BIPAP Additional Past Medical History / Comment(s): "pre skin cancer", vertigo x 2 History of Any Multi-Drug Resistant Organisms: None Reported Past Surgical History: Orthopedic Surgery, Tonsillectomy Additional Past Surgical History / Comment(s): ganglion cyst x 5 blanca hands, hemorrhoidectomy, skin "pre cancer" removed from face, arthroscopy rt knee Past Anesthesia/Blood Transfusion Reactions: Previous Problems w/ Anesthesia, Motion Sickness Additional Past Anesthesia/Blood Transfusion Reaction / Comment(s): severe stomach cramping after hemorrhoid surgery for 24 hours, thinks was something to do w/anesthesia he was given. previous anesthesia record on chart Past Psychological History: No Psychological Hx Reported Smoking Status: Never smoker Past Alcohol Use History: None Reported Past Drug Use History: None Reported - Past Family History Mother Family Medical History: No Reported History Medications and Allergies Home Medications Medication Instructions Recorded Confirmed Type Atorvastatin [Lipitor] 10 mg PO DAILY 03/28/17 10/12/20 History Losartan/Hydrochlorothiazide 1 tab PO DAILY 03/28/17 10/12/20 History [Losartan-Hctz 100-25 mg Tab] atenoloL [Tenormin] 25 mg PO DAILY 03/28/17 10/12/20 History metFORMIN HCL [Metformin HCl] 500 mg PO DAILY 03/28/17 10/12/20 History amLODIPine [Norvasc] 10 mg PO DAILY 01/25/19 10/12/20 History Ascorbic Acid [Vitamin C] 1,000 mg PO DAILY 10/12/20 10/12/20 History Aspirin [Adult Low Dose Aspirin EC] 81 mg PO DAILY 10/12/20 10/12/20 History Cholecalciferol [Vitamin D3 (25 2,000 unit PO DAILY 10/12/20 10/12/20 History Mcg = 1000 Iu)] Insulin Glargine,Hum.rec.anlog 80 unit SQ DAILY 10/12/20 10/12/20 History [Lantus Solostar] Insulin Glulisine [Apidra Solostar] 10 unit SQ HS 10/12/20 10/12/20 History Promethazine/Dextromethorphan 5 ml PO Q4H PRN 10/12/20 10/12/20 History [Promethazine-Dm Syrup] Zicam Rapid Melt 1 tab PO DAILY 10/12/20 10/12/20 History Allergies Allergy/AdvReac Type Severity Reaction Status Date / Time No Known Allergies Allergy Verified 10/12/20 21:09 Physical Exam Vitals: Vital Signs Temp Pulse Pulse Resp BP BP Pulse Ox 10/13/20 04:59 97.7 F 98 16 133/79 95 10/12/20 21:50 99.4 F 87 18 159/80 95 10/12/20 21:19 99.7 F H 104 H 20 153/79 92 L 10/12/20 21:10 20 10/12/20 21:06 99.7 F H 104 H 20 153/79 10/12/20 19:44 102.0 F H 100 164/87 92 L 10/12/20 17:42 103 F H 106 H 18 153/72 94 L Intake and Output 10/12/20 10/13/20 10/13/20 22:59 06:59 14:59 Intake Total 900 Balance 900 Intake: Intake, IV Titration 900 Amount Sodium Chloride 0.9% 1, 900 000 ml @ 75 mls/hr IV . [id number] STA Rx#:[id number] Other: # Voids 2 Weight 117.934 kg Results CBC & Chem 7: 10/13/20 07:06 10/13/20 07:06 Labs: Abnormal Lab Results - Last 24 Hours (Table) 10/12/20 10/12/20 10/12/20 Range/Units 18:32 18:32 18:32 Lymphocytes # 0.5 L (1.0-4.8) k/uL D-Dimer 0.89 H (<0.60) mg/L FEU Sodium 133 L (137-145) mmol/L Chloride 97 L (98-107) mmol/L BUN 25 H (9-20) mg/dL Creatinine 1.30 H (0.66-1.25) mg/dL Glucose 267 H (74-99) mg/dL POC Glucose (mg/dL) (75-99) mg/dL SARS-CoV-2 (PCR) (Not Detectd) 10/12/20 10/12/20 Range/Units 18:32 21:53 Lymphocytes # (1.0-4.8) k/uL D-Dimer (<0.60) mg/L FEU Sodium (137-145) mmol/L Chloride (98-107) mmol/L BUN (9-20) mg/dL Creatinine (0.66-1.25) mg/dL Glucose (74-99) mg/dL POC Glucose (mg/dL) 243 H (75-99) mg/dL SARS-CoV-2 (PCR) Detected A (Not Detectd) Thrombosis Risk Factor Assmnt - Choose All That Apply Any of the Below Risk Factors Present?: Yes Each Factor Represents 1 point: Obesity (BMI >25) Other Risk Factors: Yes Each Risk Factor Represents 2 Points: Age 61-74 years Other congenital or acquired thrombophilia - If yes, enter type in comment: No Thrombosis Risk Factor Assessment Total Risk Factor Score: 3 Thrombosis Risk Factor Assessment Level: Moderate Risk
--- NOTE | 2020-10-13 13:16 | P.CONS ---
History of Present Illness - Reason for Consult Consult date: 10/13/20 COVID-19 - History of Present Illness HISTORY OF PRESENT ILLNESS This is a 70-year-old male patient of Dr. Blue Burks with past medical history of hypertension, hyperlipidemia, diabetes mellitus type 2, obstructive sleep apnea with CPAP. Patient gives history of starting with a cou gh 14 days ago. He then developed difficulty breathing and fever. He denies any chest pain. He denies any nausea, vomiting diarrhea. His breathing and cough continued to worsen and he went to [facility] on Friday and was tested for Covid but did not receive test results. He had chills and a fall getting out of the tub without injury. Patient unfortunately continued to worsen and came in to [facility] emergency center for evaluation. Temperature was 103, heart rate 106, blood pressure 153/72, pulse ox 94% on room air. CBC was normal except for lymphocytes and 0.5. COVID-19 positive. Influenza testing negative. RSV negative. Troponin was negative. EKG was a sinus rhythm with PACs. Chest x-ray reveals bilateral mid and lower lung zone prominent infiltrates. Patient was started on vitamin C, vitamin D, zinc, Lovenox 40 mg subcu daily and dexamethasone 6 mg oral daily, consult with pulmonary medicine and infectious disease. Patient admitted to the [facility] floor. REVIEW OF SYSTEMS Constitutional: No fever, no chills, no night sweats. No weight change. Reports weakness, Reportsfatigue Reportsr lethargy. EENT: No headache. No blurred vision or double vision, no loss of vision. No loss of Hearing, no ringing in the ears, no dizziness. No nasal drainage or congestion. No epistaxis. No sore throat. Lungs: Reports shortness of breath, reports cough, no sputum production. No wheezing. Cardiovascular: No chest pain, no lower extremity edema. No palpitations. No paroxysmal nocturnal dyspnea. No orthopnea. No lightheadedness or dizziness. No syncopal episodes. Abdominal: No abdominal pain. No nausea, vomiting. No diarrhea. No constipation. No bloody or tarry stools.Reports loss of appetite. Genitourinary: No dysuria, increased frequency, urgency. No urinary retention. Musculoskeletal: No myalgias. Reports muscle weakness, no gait dysfunction, no frequent falls. No back pain. No neck pain. Integumentary: No wounds, no lesions. No rash or pruritus. Neurologic: No aphasia. No facial droop. No change in mentation. No head injury. No headache. No paralysis. No paresthesia. SOCIAL HISTORY The patient is a lifelong nonsmoker, no alcohol abuse, no marijuana or illicit drug use. He is and lives at home with his . 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 He has a CPAP at home. No nebulizer. FAMILY HISTORY Mother at age 85 from a brain hemorrhage. Father at age 93 from head trauma. Patient has a total of 4 siblings with no major medical problems. He has 3 children with no major medical problems. PHYSICAL EXAMINATION Gen: This is a 70-year-old male patient. He is resting in bed appears to be comfortable. No acute respiratory distress noted. HEENT: Head is atraumatic, normocephalic. Pupils equal, round. Sclerae is anicteric. NECK: Supple. No JVD. No lymphadenopathy. No thyromegaly. LUNGS: Diminished in the bases bilaterally with expiratory wheeze. No intercostal retractions. HEART: Regular rate and rhythm. No murmur. ABDOMEN: Soft. Bowel sounds are present. No masses. No tenderness. EXTREMITIES: Trace bilateral pedal edema. No calf tenderness. NEUROLOGICAL: Patient is awake, alert and oriented x3. Cranial nerves 2 through 12 are grossly intact. ASSESSMENT Sepsis secondary to acute Covid 19 bilateral pneumonia. Diabetes mellitus type 2. Hypertension. Hyperlipidemia. Obstructive sleep apnea with CPAP. Chronic kidney disease stage II. PLAN Patient is not candidate for Remdesivir due to 14 days since symptoms started Continue dexamethasone, Lovenox, supplements Continue Robitussin with codeine for cough Continue to monitor pulse ox closely, oxygen therapy as indicated Further recommendations based upon clinical course Thank you kindly for this consultation. Impression and plan of care have been directed as dictated by the signing physician. Gabby Morrissey nurse practitioner acting as scribe for signing physician. Past Medical History Past Medical History: Diabetes Mellitus, Hyperlipidemia, Hypertension, Sleep Apnea/CPAP/BIPAP Additional Past Medical History / Comment(s): "pre skin cancer", vertigo x 2 History of Any Multi-Drug Resistant Organisms: None Reported Past Surgical History: Orthopedic Surgery, Tonsillectomy Additional Past Surgical History / Comment(s): ganglion cyst x 5 blanca hands, hemorrhoidectomy, skin "pre cancer" removed from face, arthroscopy rt knee Past Anesthesia/Blood Transfusion Reactions: Previous Problems w/ Anesthesia, Motion Sickness Additional Past Anesthesia/Blood Transfusion Reaction / Comm: severe stomach cramping after hemorrhoid surgery for 24 hours, thinks was something to do w/anesthesia he was given. previous anesthesia record on chart Past Psychological History: No Psychological Hx Reported Smoking Status: Never smoker Past Alcohol Use History: None Reported Past Drug Use History: None Reported - Past Family History Mother Family Medical History: No Reported History Medications and Allergies Home Medications Medication Instructions Recorded Confirmed Type Atorvastatin [Lipitor] 10 mg PO DAILY 03/28/17 10/12/20 History Losartan/Hydrochlorothiazide 1 tab PO DAILY 03/28/17 10/12/20 History [Losartan-Hctz 100-25 mg Tab] atenoloL [Tenormin] 25 mg PO DAILY 03/28/17 10/12/20 History metFORMIN HCL [Metformin HCl] 500 mg PO DAILY 03/28/17 10/12/20 History amLODIPine [Norvasc] 10 mg PO DAILY 01/25/19 10/12/20 History Ascorbic Acid [Vitamin C] 1,000 mg PO DAILY 10/12/20 10/12/20 History Aspirin [Adult Low Dose Aspirin EC] 81 mg PO DAILY 10/12/20 10/12/20 History Cholecalciferol [Vitamin D3 (25 2,000 unit PO DAILY 10/12/20 10/12/20 History Mcg = 1000 Iu)] Insulin Glargine,Hum.rec.anlog 80 unit SQ DAILY 10/12/20 10/12/20 History [Lantus Solostar] Insulin Glulisine [Apidra Solostar] 10 unit SQ HS 10/12/20 10/12/20 History Promethazine/Dextromethorphan 5 ml PO Q4H PRN 10/12/20 10/12/20 History [Promethazine-Dm Syrup] Zicam Rapid Melt 1 tab PO DAILY 10/12/20 10/12/20 History Allergies Allergy/AdvReac Type Severity Reaction Status Date / Time No Known Allergies Allergy Verified 10/12/20 21:09 Physical Exam Vitals: Vital Signs Temp Pulse Pulse Resp BP BP Pulse Ox 10/13/20 11:00 98.3 F 73 19 153/81 95 10/13/20 04:59 97.7 F 98 16 133/79 95 10/12/20 21:50 99.4 F 87 18 159/80 95 10/12/20 21:19 99.7 F H 104 H 20 153/79 92 L 10/12/20 21:10 20 10/12/20 21:06 99.7 F H 104 H 20 153/79 10/12/20 19:44 102.0 F H 100 164/87 92 L 10/12/20 17:42 103 F H 106 H 18 153/72 94 L Intake and Output 10/12/20 10/13/20 10/13/20 22:59 06:59 14:59 Intake Total 900 Balance 900 Intake: Intake, IV Titration 900 Amount Sodium Chloride 0.9% 1, 900 000 ml @ 75 mls/hr IV . [id number] STA Rx#:[id number] Other: # Voids 2 Weight 117.934 kg Results CBC & Chem 7: 10/13/20 07:06 10/13/20 07:06 Labs: Abnormal Lab Results - Last 24 Hours (Table) 10/12/20 10/12/20 10/12/20 Range/Units 18:32 18:32 18:32 Lymphocytes # 0.5 L (1.0-4.8) k/uL D-Dimer 0.89 H (<0.60) mg/L FEU Sodium 133 L (137-145) mmol/L Chloride 97 L (98-107) mmol/L Anion Gap (4.00-12.00) mmol/L BUN 25 H (9-20) mg/dL Creatinine 1.30 H (0.66-1.25) mg/dL BUN/Creatinine Ratio (12.00-20.00) Ratio Glucose 267 H (74-99) mg/dL POC Glucose (mg/dL) (75-99) mg/dL SARS-CoV-2 (PCR) (Not Detectd) 10/12/20 10/12/20 10/13/20 Range/Units 18:32 21:53 07:06 Lymphocytes # 0.4 L (1.0-4.8) k/uL D-Dimer (<0.60) mg/L FEU Sodium (137-145) mmol/L Chloride (98-107) mmol/L Anion Gap (4.00-12.00) mmol/L BUN (9-20) mg/dL Creatinine (0.66-1.25) mg/dL BUN/Creatinine Ratio (12.00-20.00) Ratio Glucose (74-99) mg/dL POC Glucose (mg/dL) 243 H (75-99) mg/dL SARS-CoV-2 (PCR) Detected A (Not Detectd) 10/13/20 10/13/20 10/13/20 Range/Units 07:06 08:56 11:22 Lymphocytes # (1.0-4.8) k/uL D-Dimer (<0.60) mg/L FEU Sodium (137-145) mmol/L Chloride (98-107) mmol/L Anion Gap 12.60 H (4.00-12.00) mmol/L BUN 28.0 H (9-20) mg/dL Creatinine (0.66-1.25) mg/dL BUN/Creatinine Ratio 23.33 H (12.00-20.00) Ratio Glucose 292 H (74-99) mg/dL POC Glucose (mg/dL) 353 H 285 H (75-99) mg/dL SARS-CoV-2 (PCR) (Not Detectd)
[2020-10-13 17:05] LABS: Glucose,Whole Blood 215 mg/dL (75-99)
--- NOTE | 2020-10-13 18:42 | P.CNPUL ---
History of Present Illness Consult date: 10/13/20 Requesting physician: Claude Mills Reason for consult: dyspnea Chief complaint: Shortness of breath, body aches History of present illness: This is a very pleasant 70-year-old gentleman with a history of diabetes mellitus, hypertension, hyperlipidemia who presented to the emergency room yesterday after developing increasing shortness of breath and body aches for approximate 14 days. He was seen at [facility] 6 days ago and was swabbed for CoVID however he had not heard any results back. Chest x-ray revealed evidence of bilateral mid and lower lung zone infiltrates. White count 4.9. Hemoglobin 14.9. Lymphocytes 0.4. Sodium 137. Potassium 4.0. Creatinine 1.2. Glucose 292. He is seen today in consultation on the regular medical floor. He is awake and alert in no acute distress. Currently maintaining O2 saturation in the mid 90s on 2 L/m per nasal cannula. He has been initiated on vitamin supplements, dexamethasone, Lovenox. He is outside the window for Remdesivir. Review of Systems REVIEW OF SYSTEMS: CONSTITUTIONAL: Fatigue, weakness. Denies any recent significant weight loss or weight gain. EYES: Denies change in vision. EARS, NOSE, MOUTH, THROAT: Denies headaches, denies sore throat. CARDIOVASCULAR: Denies chest pain, palpitations or syncopal episodes. RESPIRATORY: Positive for shortness of breath, cough, congestion no hemoptysis. GASTROINTESTINAL: Denies change in appetite, denies abdominal pain GENITOURINARY: Denies hematuria, denies infections. MUSKULOSKELETAL: Denies pain, denies swelling. INTEGUMENTARY: Denies rash, denies eczema. NEUROLOGICAL: Denies recent memory loss, no recent seizure activity. PSYCHIATRIC: Denies anxiety, denies depression. HEMATOLOGIC/LYMPHATIC: Denies anemia, denies enlarged lymph nodes. Past Medical History Past Medical History: Diabetes Mellitus, Hyperlipidemia, Hypertension, Sleep Apnea/CPAP/BIPAP Additional Past Medical History / Comment(s): "pre skin cancer", vertigo x 2 History of Any Multi-Drug Resistant Organisms: None Reported Past Surgical History: Orthopedic Surgery, Tonsillectomy Additional Past Surgical History / Comment(s): ganglion cyst x 5 blanca hands, hemorrhoidectomy, skin "pre cancer" removed from face, arthroscopy rt knee Past Anesthesia/Blood Transfusion Reactions: Previous Problems w/ Anesthesia, Motion Sickness Additional Past Anesthesia/Blood Transfusion Reaction / Comment(s): severe stomach cramping after hemorrhoid surgery for 24 hours, thinks was something to do w/anesthesia he was given. previous anesthesia record on chart Past Psychological History: No Psychological Hx Reported Smoking Status: Never smoker Past Alcohol Use History: None Reported Past Drug Use History: None Reported - Past Family History Mother Family Medical History: No Reported History Medications and Allergies Home Medications Medication Instructions Recorded Confirmed Type Atorvastatin [Lipitor] 10 mg PO DAILY 03/28/17 10/12/20 History Losartan/Hydrochlorothiazide 1 tab PO DAILY 03/28/17 10/12/20 History [Losartan-Hctz 100-25 mg Tab] atenoloL [Tenormin] 25 mg PO DAILY 03/28/17 10/12/20 History metFORMIN HCL [Metformin HCl] 500 mg PO DAILY 03/28/17 10/12/20 History amLODIPine [Norvasc] 10 mg PO DAILY 01/25/19 10/12/20 History Ascorbic Acid [Vitamin C] 1,000 mg PO DAILY 10/12/20 10/12/20 History Aspirin [Adult Low Dose Aspirin EC] 81 mg PO DAILY 10/12/20 10/12/20 History Cholecalciferol [Vitamin D3 (25 2,000 unit PO DAILY 10/12/20 10/12/20 History Mcg = 1000 Iu)] Insulin Glargine,Hum.rec.anlog 80 unit SQ DAILY 10/12/20 10/12/20 History [Lantus Solostar] Insulin Glulisine [Apidra Solostar] 10 unit SQ HS 10/12/20 10/12/20 History Promethazine/Dextromethorphan 5 ml PO Q4H PRN 10/12/20 10/12/20 History [Promethazine-Dm Syrup] Zicam Rapid Melt 1 tab PO DAILY 10/12/20 10/12/20 History Allergies Allergy/AdvReac Type Severity Reaction Status Date / Time No Known Allergies Allergy Verified 10/12/20 21:09 Physical Exam Vitals: Vital Signs Temp Pulse Pulse Resp BP BP Pulse Ox 10/13/20 17:00 98 F 65 18 132/76 96 10/13/20 11:00 98.3 F 73 19 153/81 95 10/13/20 08:00 73 19 10/13/20 04:59 97.7 F 98 16 133/79 95 10/12/20 21:50 99.4 F 87 18 159/80 95 10/12/20 21:19 99.7 F H 104 H 20 153/79 92 L 10/12/20 21:10 20 10/12/20 21:06 99.7 F H 104 H 20 153/79 10/12/20 19:44 102.0 F H 100 164/87 92 L Intake and Output 10/13/20 10/13/20 10/13/20 06:59 14:59 22:59 Intake Total 900 450 Balance 900 450 Intake: Intake, IV Titration 900 450 Amount Sodium Chloride 0.9% 1, 900 450 000 ml @ 75 mls/hr IV . [id number] STA Rx#:[id number] Other: # Voids 2 GENERAL EXAM: Alert, very pleasant 70-year-old gentleman, on 2 L nasal cannula, up in a chair at the bedside, comfortable in no apparent distress. HEAD: Normocephalic. EYES: Normal reaction of pupils, equal size. NOSE: Clear with pink turbinates. THROAT: No erythema or exudates. NECK: No masses, no JVD. CHEST: No chest wall deformity. LUNGS: Equal air entry with bibasilar crackles. CVS: S1 and S2 normal with no audible murmur, regular rhythm. ABDOMEN: No hepatosplenomegaly, normal bowel sounds, no guarding or rigidity. SPINE: No scoliosis or deformity SKIN: No rashes CENTRAL NERVOUS SYSTEM: No focal deficits, tone is normal in all 4 extremities. EXTREMITIES: There is no peripheral edema. No clubbing, no cyanosis. Peripheral pulses are intact. Results - Laboratory Findings CBC and BMP: 10/13/20 07:06 10/13/20 07:06 PT/INR, D-dimer PT 10.5 sec (9.0-12.0) 10/12/20 18:32 INR 1.0 (<1.2) 10/12/20 18:32 D-Dimer 0.89 mg/L FEU (<0.60) H 10/12/20 18:32 Abnormal lab findings: Abnormal Labs 10/12/20 10/12/20 10/12/20 18:32 18:32 18:32 Lymphocytes # 0.5 L D-Dimer 0.89 H Sodium 133 L Chloride 97 L Anion Gap BUN 25 H Creatinine 1.30 H BUN/Creatinine Ratio Glucose 267 H POC Glucose (mg/dL) SARS-CoV-2 (PCR) 10/12/20 10/12/20 10/13/20 18:32 21:53 07:06 Lymphocytes # 0.4 L D-Dimer Sodium Chloride Anion Gap BUN Creatinine BUN/Creatinine Ratio Glucose POC Glucose (mg/dL) 243 H SARS-CoV-2 (PCR) Detected A 10/13/20 10/13/20 10/13/20 07:06 08:56 11:22 Lymphocytes # D-Dimer Sodium Chloride Anion Gap 12.60 H BUN 28.0 H Creatinine BUN/Creatinine Ratio 23.33 H Glucose 292 H POC Glucose (mg/dL) 353 H 285 H SARS-CoV-2 (PCR) 10/13/20 16:53 Lymphocytes # D-Dimer Sodium Chloride Anion Gap BUN Creatinine BUN/Creatinine Ratio Glucose POC Glucose (mg/dL) 215 H SARS-CoV-2 (PCR) - Diagnostic Findings Chest x-ray: image reviewed Assessment and Plan Assessment: 1 Acute CoVID 19 pneumonitis, initial symptoms started 2 weeks ago today, outside the window for Remdesivir 2 Acute hypoxemic respiratory failure secondary to above 3 diabetes mellitus 4 Hypertension 5 Hyperlipidemia 6 Obstructive sleep apnea 7 Nonsmoker Plan: The patient was seen and evaluated by Dr. Germain He is outside the window for Remdesivir Continue dexamethasone, Lovenox, vitamin supplements Continue to monitor his O2 sats saturations closely We will continue to follow make further recommendations based on his clinical status I, the cosigning physician, performed a history & physical examination of the patient. Lungs sounds with by basilar crackles. Maintaining good O2 saturations in the 90s on 2 L/m per nasal cannula. I discussed the assessment and plan of care with my nurse practitioner, Chloe Chisholm. I attest to the above note as dictated by her. Time with Patient: Greater than 30
[2020-10-13 20:05] LABS: Glucose,Whole Blood 277 mg/dL (75-99)
[2020-10-13] MEDS ORDERED: INSULIN ASPART (NovoLOG) 100 UNIT/ML VIAL SQ SCH (23:18)
[2020-10-14 07:03] LABS: Glucose,Whole Blood 246 mg/dL (75-99)
[2020-10-14] MEDS: ZINC SULFATE 220 MG CAP PO SCH (08:43)
[2020-10-14] MEDS: ASPIRIN 81 MG PO SCH (08:43)
[2020-10-14] MEDS: ASCORBIC ACID 500 MG TAB PO SCH ×3 (08:43→08:46)
[2020-10-14] MEDS: CHOLECALCIFEROL 1,000 UNIT TAB PO SCH (08:43)
[2020-10-14] MEDS: LOSARTAN-HCTZ 50-12.5 MG 1 EACH TAB PO SCH (08:43)
[2020-10-14] MEDS: amLODIPine 10 MG TAB PO SCH (08:44)
[2020-10-14] MEDS: ENOXAPARIN 40 MG/0.4 ML SYRINGE SQ SCH (08:44)
[2020-10-14] MEDS: dexAMETHasone 2 MG TAB PO SCH (08:44)
[2020-10-14] MEDS: INSULIN ASPART (NovoLOG) 100 UNIT/ML VIAL SQ SCH ×6 (08:45→20:57)
[2020-10-14] MEDS: metFORMIN 500 MG TAB PO SCH (08:45)
[2020-10-14] MEDS: INSULIN DETEMIR (LEVEMIR) 100 UNIT/ML SYR SQ SCH ×2 (08:45→09:58)
[2020-10-14] MEDS: atenoloL 25 MG TAB PO SCH (08:46)
[2020-10-14] MEDS: PANTOPRAZOLE 40 MG TABLET PO SCH (08:46)
[2020-10-14] MEDS: ATORVASTATIN 10 MG TAB PO SCH (08:47)
[2020-10-14 11:09] LABS: Glucose,Whole Blood 257 mg/dL (75-99)
--- NOTE | 2020-10-14 12:29 | P.PN ---
Subjective Progress Note Date: 10/14/20 HISTORY OF PRESENT ILLNESS This is a 70-year-old male patient of Dr. Blue Burks with past medical history of hypertension, hyperlipidemia, diabetes mellitus type 2, ob structive sleep apnea with CPAP. Patient gives history of starting with a cough 14 days ago. He then developed difficulty breathing and fever. He denies any chest pain. He denies any nausea, vomiting diarrhea. His breathing and cough continued to worsen and he went to [facility] on Friday and was tested for Covid but did not receive test results. He had chills and a fall getting out of the tub without injury. Patient unfortunately continued to worsen and came in to [facility] emergency center for evaluation. Temperature was 103, heart rate 106, blood pressure 153/72, pulse ox 94% on room air. CBC was normal except for lymphocytes and 0.5. COVID-19 positive. Influenza testing negative. RSV negative. Troponin was negative. EKG was a sinus rhythm with PACs. Chest x-ray reveals bilateral mid and lower lung zone prominent infiltrates. Patient was started on vitamin C, vitamin D, zinc, Lovenox 40 mg subcu daily and dexamethasone 6 mg oral daily, consult with pulmonary medicine and infectious disease. Patient admitted to the [facility] floor. 10/14: Patient is found resting comfortably in bed on 6 north. He has incentive spirometer at the bedside. Patient states that he is feeling better today compared to yesterday. Patient is afebrile, respirations 18, heart rate 60, blood pressure 120/73, pulse oximetry 96% on 2 L. Patient continues to have a cough. Which we will start albuterol 2 puffs 4 times a day. Blood sugars ranging from 240s to 360. We will increase his Levemir to 55 units daily, NovoLog 4 units before meals 3 times a day, and insulin sliding scale. REVIEW OF SYSTEMS Constitutional: No fever, no chills, no night sweats. No weight change. Reports weakness, Reportsfatigue Reportsr lethargy. EENT: No headache. No blurred vision or double vision, no loss of vision. No loss of Hearing, no ringing in the ears, no dizziness. No nasal drainage or congestion. No epistaxis. No sore throat. Lungs: Reports shortness of breath, reports cough, no sputum production. No wheezing. Cardiovascular: No chest pain, no lower extremity edema. No palpitations. No paroxysmal nocturnal dyspnea. No orthopnea. No lightheadedness or dizziness. No syncopal episodes. Abdominal: No abdominal pain. No nausea, vomiting. No diarrhea. No constipation. No bloody or tarry stools.Reports loss of appetite. Genitourinary: No dysuria, increased frequency, urgency. No urinary retention. Musculoskeletal: No myalgias. Reports muscle weakness, no gait dysfunction, no frequent falls. No back pain. No neck pain. Integumentary: No wounds, no lesions. No rash or pruritus. Neurologic: No aphasia. No facial droop. No change in mentation. No head injury. No headache. No paralysis. No paresthesia. PHYSICAL EXAMINATION Gen: This is a 70-year-old male patient. He is resting in bed appears to be comfortable. No acute respiratory distress noted. HEENT: Head is atraumatic, normocephalic. Pupils equal, round. Sclerae is anicteric. NECK: Supple. No JVD. No lymphadenopathy. No thyromegaly. LUNGS: Diminished in the bases bilaterally with expiratory wheeze. No intercostal retractions. HEART: Regular rate and rhythm. No murmur. ABDOMEN: Soft. Bowel sounds are present. No masses. No tenderness. EXTREMITIES: Trace bilateral pedal edema. No calf tenderness. NEUROLOGICAL: Patient is awake, alert and oriented x3. Cranial nerves 2 through 12 are grossly intact. ASSESSMENT AND PLAN 1. Sepsis secondary to acute Covid 19 bilateral pneumonia. Continue vitamin C, vitamin D, zinc, Lovenox 40 mg subcu daily, dexamethasone 6 mg oral daily. Consult with infectious disease and pulmonary medicine. Patient is out of timeframe for Remdesivir. Patient started on Robitussin with codeine. Albuterol inhaler 2 puffs 4 times a day 2. Diabetes mellitus type 2. Increase Levemir 55 units daily, NovoLog 4 units subcu before meals 3 times a day, continue NovoLog scale, metformin 500 mg daily. 3. Hypertension. Continue atenolol 25 mg daily, Norvasc 10 mg daily. 4. Hyperlipidemia. Continue atorvastatin 10 mg daily. 5. Obstructive sleep apnea with CPAP. 6. Chronic kidney disease stage II. 7. GI prophylaxis. Protonix. 8. DVT prophylaxis. Lovenox. Patient will be admitted to the hospital for a minimum of 2 night stay. DISCHARGE PLAN Most likely home, possible home care needs. Impression and plan of care have been directed as dictated by the signing physician. Yen Quiles nurse practitioner acting as scribe for signing physician. Objective - Vital Signs Vital signs: Vital Signs Temp 97.9 F 10/14/20 10:33 Pulse 60 10/14/20 10:33 Resp 18 10/14/20 10:33 BP 128/73 10/14/20 10:33 Pulse Ox 96 10/14/20 10:33 Intake & Output 10/13/20 10/14/20 10/14/20 18:59 06:59 18:59 Intake Total 450 500 Balance 450 500 Intake: Intake, IV Titration 450 Amount Sodium Chloride 0.9% 1, 450 000 ml @ 75 mls/hr IV . [id number] STA Rx#:[id number] Oral 500 Other: # Voids 2 - Labs CBC & Chem 7: 10/13/20 07:06 10/13/20 07:06 Labs: Abnormal Lab Results - Last 24 Hours (Table) 10/13/20 10/13/20 10/14/20 Range/Units 16:53 20:02 06:48 POC Glucose (mg/dL) 215 H 277 H 246 H (75-99) mg/dL 10/14/20 Range/Units 11:03 POC Glucose (mg/dL) 257 H (75-99) mg/dL
[2020-10-14] MEDS: ALBUTEROL HFA INHALER INHALATION SCH ×3 (13:02→20:10)
--- NOTE | 2020-10-14 13:16 | P.PN ---
Subjective Progress Note Date: 10/14/20 This is a very pleasant 70-year-old gentleman with a history of diabetes mellitus, hypertension, hyperlipidemia who presented to the emergency room yesterday after developing increasing shortness of breath and body aches for approximate 14 days. He was seen at [facility] 6 days ago and was swabbed for CoVID however he had not heard any results back. Chest x-ray revealed evidence of bilateral mid and lower lung zone infiltrates. White count 4.9. Hemoglobin 14.9. Lymphocytes 0.4. Sodium 137. Potassium 4.0. Creatinine 1.2. Glucose 292. He is seen today in consultation on the regular medical floor. He is awake and alert in no acute distress. Currently maintaining O2 saturation in the mid 90s on 2 L/m per nasal cannula. He has been initiated on vitamin supplements, dexamethasone, Lovenox. He is outside the window for Remdesivir. On 10/14/2020, the patient is a specific complaints. He was provided incentive spirometer is using it regularly. No nausea. No vomiting. No diarrhea. He was has been feeling stronger. He has a cough. No significant shortness of breath. Objective - Vital Signs Vital signs: Vital Signs Temp 97.9 F 10/14/20 10:33 Pulse 60 10/14/20 10:33 Resp 18 10/14/20 10:33 BP 128/73 10/14/20 10:33 Pulse Ox 96 10/14/20 10:33 Intake & Output 10/13/20 10/14/20 10/14/20 18:59 06:59 18:59 Intake Total 450 500 Balance 450 500 Intake: Intake, IV Titration 450 Amount Sodium Chloride 0.9% 1, 450 000 ml @ 75 mls/hr IV . [id number] STA Rx#:[id number] Oral 500 Other: # Voids 2 - Exam GENERAL EXAM: Alert, very pleasant 70-year-old gentleman, on 2 L nasal cannula, up in a chair at the bedside, comfortable in no apparent distress. HEAD: Normocephalic. EYES: Normal reaction of pupils, equal size. NOSE: Clear with pink turbinates. THROAT: No erythema or exudates. NECK: No masses, no JVD. CHEST: No chest wall deformity. LUNGS: Equal air entry with bibasilar crackles. CVS: S1 and S2 normal with no audible murmur, regular rhythm. ABDOMEN: No hepatosplenomegaly, normal bowel sounds, no guarding or rigidity. SPINE: No scoliosis or deformity SKIN: No rashes CENTRAL NERVOUS SYSTEM: No focal deficits, tone is normal in all 4 extremities. EXTREMITIES: There is no peripheral edema. No clubbing, no cyanosis. Peripheral pulses are intact. - Labs CBC & Chem 7: 10/13/20 07:06 10/13/20 07:06 Labs: Abnormal Lab Results - Last 24 Hours (Table) 10/13/20 10/13/20 10/14/20 Range/Units 16:53 20:02 06:48 POC Glucose (mg/dL) 215 H 277 H 246 H (75-99) mg/dL 10/14/20 Range/Units 11:03 POC Glucose (mg/dL) 257 H (75-99) mg/dL Assessment and Plan Plan: 1 Acute CoVID 19 pneumonitis, initial symptoms started 2 weeks ago today, outsid e the window for Remdesivir 2 Acute hypoxemic respiratory failure secondary to above 3 diabetes mellitus 4 Hypertension 5 Hyperlipidemia 6 Obstructive sleep apnea 7 Nonsmoker Plan Patient's pulse ox on room air and see if the patient can be weaned off the oxygen therapy at this point. Continue Decadron She'll be stable for discharge within next 24 hours. His oxygenation needs to be addressed and evaluated and he is to be evaluated for home O2 therapy if needed. He is doing well. He has no specific complaints for now. Is feeling better.
[2020-10-14 17:00] LABS: Glucose,Whole Blood 253 mg/dL (75-99)
[2020-10-14 20:19] LABS: Glucose,Whole Blood 219 mg/dL (75-99)
--- NOTE | 2020-10-15 | PN ---
PROGRESS NOTE DATE OF SERVICE: 10/14/2020 REASON FOR FOLLOWUP: COVID-19 infection. INTERVAL HISTORY: Patient is currently afebrile. Patient is breathing more comfortably. The patient's cough has decreased in intensity. No drainage. No chest pain. No nausea, no vomiting. No abdominal pain or diarrhea. PHYSICAL EXAMINATION: Blood pressure 124/66, pulse of 61, temperature 97.9. He is 92% on room air. General description is an elderly male lying in bed in no distress. Respiratory system: Unlabored breathing, decreased intensity of breath sounds. No wheeze. HEART: S1, S2. Regular rate and rhythm. Abdomen soft, no tenderness. LABS: No new labs have been obtained today. DIAGNOSTIC IMPRESSION AND PLAN: Patient with acute COVID-19 infection in this patient admitted to the hospital more than 2 weeks hospital symptoms. The patient clinically responding to the current supportive treatment of Lovenox, Dexamethasone and Zosyn, to continue along with respiratory support. MMODL / IJN: [id number] /
[2020-10-15 07:00] LABS: Glucose,Whole Blood 205 mg/dL (75-99)
[2020-10-15] MEDS: ALBUTEROL HFA INHALER INHALATION SCH ×2 (08:11→11:36)
[2020-10-15] MEDS: ENOXAPARIN 40 MG/0.4 ML SYRINGE SQ SCH (08:37)
[2020-10-15] MEDS: INSULIN ASPART (NovoLOG) 100 UNIT/ML VIAL SQ SCH ×4 (08:37→12:33)
[2020-10-15] MEDS: metFORMIN 500 MG TAB PO SCH (08:37)
[2020-10-15] MEDS: amLODIPine 10 MG TAB PO SCH (08:38)
[2020-10-15] MEDS: atenoloL 25 MG TAB PO SCH (08:38)
[2020-10-15] MEDS: PANTOPRAZOLE 40 MG TABLET PO SCH (08:38)
[2020-10-15] MEDS: ZINC SULFATE 220 MG CAP PO SCH (08:38)
[2020-10-15] MEDS: LOSARTAN-HCTZ 50-12.5 MG 1 EACH TAB PO SCH (08:38)
[2020-10-15] MEDS: CHOLECALCIFEROL 1,000 UNIT TAB PO SCH (08:38)
[2020-10-15] MEDS: dexAMETHasone 2 MG TAB PO SCH (08:38)
[2020-10-15] MEDS: ASPIRIN 81 MG PO SCH (08:38)
[2020-10-15] MEDS: ATORVASTATIN 10 MG TAB PO SCH (08:39)
[2020-10-15] MEDS: INSULIN DETEMIR (LEVEMIR) 100 UNIT/ML SYR SQ SCH (08:40)
[2020-10-15] MEDS: ASCORBIC ACID 500 MG TAB PO SCH (08:41)
[2020-10-15 10:55] VITALS: BP 124/69; RESP 18; TEMP 97.9
--- NOTE | 2020-10-15 11:04 | P.DS ---
Providers Date of admission: 10/12/20 20:30 Attending physician: Claude Mills Consults: 10/12/20 20:31 Consult Physician Urgent Consulting Provider: Shady Germain Consult Reason/Comments: covid pna Do you want consulting provider notified?: Yes Consult Physician Urgent Consulting Provider: Marielos Serna Consult Reason/Comments: acute covid pna Do you want consulting provider notified?: Yes [facility] care [facility] Course: HISTORY OF PRESENT ILLNESS This is a 70-year-old male patient of Dr. Blue Burks with past medical history of hypertension, hyperlipidemia, diabetes mellitus type 2, obstructive sleep apnea with CPAP. Patient gives history of starting with a cough 14 days ago. He then developed difficulty breathing and fever. He denies any chest pain. He denies any nausea, vomiting diarrhea. His breathing and cough continued to worsen and he went to [facility] on Friday and was tested for Covid but did not receive test results. He had chills and a fall getting out of the tub without injury. Patient unfortunately continued to worsen and came in to [facility] emergency center for evaluation. Temperature was 103, heart rate 106, blood pressure 153/72, pulse ox 94% on room air. CBC was normal except for lymphocytes and 0.5. COVID-19 positive. Influenza testing negative. RSV negative. Troponin was negative. EKG was a sinus rhythm with PACs. Chest x-ray reveals bilateral mid and lower lung zone prominent infiltrates. Patient was started on vitamin C, vitamin D, zinc, Lovenox 40 mg subcu daily and dexamethasone 6 mg oral daily, consult with pulmonary medicine and infectious disease. Patient admitted to the [facility] floor. 10/14: Patient is found resting comfortably in bed on 6 north. He has incentive spirometer at the bedside. Patient states that he is feeling better today compared to yesterday. Patient is afebrile, respirations 18, heart rate 60, blood pressure 120/73, pulse oximetry 96% on 2 L. Patient continues to have a cough. Which we will start albuterol 2 puffs 4 times a day. Blood sugars ranging from 240s to 360. We will increase his Levemir to 55 units daily, NovoLog 4 units before meals 3 times a day, and insulin sliding scale. 10/15: Patient is resting comfortably in bed on 620. He continues to use his incentive spirometer. Patient states that he is feeling much better compared to yesterday. He has been ambulatory. Blood sugars have been well managed. He is tolerating the albuterol inhaler. he states he is ready to go home. He will resume his home dosage for about 8 units.. Discharge diagnosis 1. Sepsis secondary to acute Covid 19 bilateral pneumonia. 2. Diabetes mellitus type 2. 3. Hypertension. 4. Hyperlipidemia. 5. Obstructive sleep apnea with CPAP. 6. Chronic kidney disease stage II. DISCHARGE Disposition Home with self-care Impression and plan of care have been directed as dictated by the signing physician. Yen Quiles nurse practitioner acting as scribe for signing physician. Patient Condition at Discharge: Stable Plan - Discharge Summary Discharge Rx Participant: No New Discharge Prescriptions: New dexAMETHasone [Hexadrol] 6 mg PO DAILY #4 tab Zinc Sulfate [Orazinc] 220 mg PO DAILY #10 cap Pantoprazole [Protonix] 40 mg PO AC-BRKFST #30 tablet. Albuterol Inhaler [Ventolin Hfa Inhaler] 2 puff INHALATION RT-QID #1 puff Ascorbic Acid [Vitamin C] 1,000 mg PO DAILY #10 tab Continue Atorvastatin [Lipitor] 10 mg PO DAILY metFORMIN HCL [Metformin HCl] 500 mg PO DAILY Losartan/Hydrochlorothiazide [Losartan-Hctz 100-25 mg Tab] 1 tab PO DAILY atenoloL [Tenormin] 25 mg PO DAILY amLODIPine [Norvasc] 10 mg PO DAILY Zicam Rapid Melt 1 tab PO DAILY Promethazine/Dextromethorphan [Promethazine-Dm 6.25-15 mg/5Ml] 5 ml PO Q4H PRN PRN Reason: Cough Cholecalciferol [Vitamin D3 (25 Mcg = 1000 Iu)] 2,000 unit PO DAILY Insulin Glulisine [Apidra Solostar] 10 unit SQ HS Insulin Glargine,Hum.rec.anlog [Lantus Solostar] 80 unit SQ DAILY Ascorbic Acid [Vitamin C] 1,000 mg PO DAILY Aspirin [Adult Low Dose Aspirin EC] 81 mg PO DAILY Discharge Medication List Atorvastatin [Lipitor] 10 mg PO DAILY 03/28/17 [History] Losartan/Hydrochlorothiazide [Losartan-Hctz 100-25 mg Tab] 1 tab PO DAILY 03/28/17 [History] atenoloL [Tenormin] 25 mg PO DAILY 03/28/17 [History] metFORMIN HCL [Metformin HCl] 500 mg PO DAILY 03/28/17 [History] amLODIPine [Norvasc] 10 mg PO DAILY 01/25/19 [History] Ascorbic Acid [Vitamin C] 1,000 mg PO DAILY 10/12/20 [History] Aspirin [Adult Low Dose Aspirin EC] 81 mg PO DAILY 10/12/20 [History] Cholecalciferol [Vitamin D3 (25 Mcg = 1000 Iu)] 2,000 unit PO DAILY 10/12/20 [History] Insulin Glargine,Hum.rec.anlog [Lantus Solostar] 80 unit SQ DAILY 10/12/20 [History] Insulin Glulisine [Apidra Solostar] 10 unit SQ HS 10/12/20 [History] Promethazine/Dextromethorphan [Promethazine-Dm 6.25-15 mg/5Ml] 5 ml PO Q4H PRN 10/12/20 [History] Zicam Rapid Melt 1 tab PO DAILY 10/12/20 [History] Albuterol Inhaler [Ventolin Hfa Inhaler] 2 puff INHALATION RT-QID #1 puff 10/15/20 [Rx] Ascorbic Acid [Vitamin C] 1,000 mg PO DAILY #10 tab 10/15/20 [Rx] Pantoprazole [Protonix] 40 mg PO AC-BRKFST #30 tablet.dr 10/15/20 [Rx] Zinc Sulfate [Orazinc] 220 mg PO DAILY #10 cap 10/15/20 [Rx] dexAMETHasone [Hexadrol] 6 mg PO DAILY #4 tab 10/15/20 [Rx] Follow up Appointment(s)/Referral(s): Blue Burks MD [Primary Care Provider] - 1-2 days
[2020-10-15 11:12] LABS: Glucose,Whole Blood 191 mg/dL (75-99)
[2020-10-15 12:03] VITALS: PULSE 62
--- NOTE | 2020-10-15 12:40 | P.PN ---
Subjective Progress Note Date: 10/15/20 This is a very pleasant 70-year-old gentleman with a history of diabetes mellitus, hypertension, hyperlipidemia who presented to the emergency room yesterday after developing increasing shortness of breath and body aches for approximate 14 days. He was seen at [facility] 6 days ago and was swabbed for CoVID however he had not heard any results back. Chest x-ray revealed evidence of bilateral mid and lower lung zone infiltrates. White count 4.9. Hemoglobin 14.9. Lymphocytes 0.4. Sodium 137. Potassium 4.0. Creatinine 1.2. Glucose 292. He is seen today in consultation on the regular medical floor. He is awake and alert in no acute distress. Currently maintaining O2 saturation in the mid 90s on 2 L/m per nasal cannula. He has been initiated on vitamin supplements, dexamethasone, Lovenox. He is outside the window for Remdesivir. On 10/14/2020, the patient is a specific complaints. He was provided incentive spirometer is using it regularly. No nausea. No vomiting. No diarrhea. He was has been feeling stronger. He has a cough. No significant shortness of breath. 13 2019, the patient is on room air oxygen with a adequate pulse ox. No new complaints for now. No constitutional symptoms. No body aches. No fever. No other new complaints otherwise for now. The patient has been weaned off the oxygen. The patient was treated with Decadron and multivitamins. Objective - Vital Signs Vital signs: Vital Signs Temp 97.9 F 10/15/20 10:26 Pulse 62 10/15/20 12:02 Resp 18 10/15/20 10:26 BP 124/69 10/15/20 10:26 Pulse Ox 96 10/15/20 12:02 Intake & Output 10/14/20 10/15/20 10/15/20 18:59 06:59 18:59 Intake Total 250 Balance 250 Intake: Oral 250 Other: Voiding Method Toilet # Voids 2 - Exam GENERAL EXAM: Alert, very pleasant 70-year-old gentleman, on room air oxygen. HEAD: Normocephalic. EYES: Normal reaction of pupils, equal size. NOSE: Clear with pink turbinates. THROAT: No erythema or exudates. NECK: No masses, no JVD. CHEST: No chest wall deformity. LUNGS: Equal air entry with bibasilar crackles. CVS: S1 and S2 normal with no audible murmur, regular rhythm. ABDOMEN: No hepatosplenomegaly, normal bowel sounds, no guarding or rigidity. SPINE: No scoliosis or deformity SKIN: No rashes CENTRAL NERVOUS SYSTEM: No focal deficits, tone is normal in all 4 extremities. EXTREMITIES: There is no peripheral edema. No clubbing, no cyanosis. Peripheral pulses are intact. - Labs CBC & Chem 7: 10/13/20 07:06 10/13/20 07:06 Labs: Abnormal Lab Results - Last 24 Hours (Table) 10/14/20 10/14/20 10/15/20 Range/Units 16:52 20:17 06:55 POC Glucose (mg/dL) 253 H 219 H 205 H (75-99) mg/dL 10/15/20 Range/Units 11:08 POC Glucose (mg/dL) 191 H (75-99) mg/dL Assessment and Plan Plan: 1 Acute CoVID 19 pneumonitis, initial symptoms started 2 weeks ago , outside the window for Remdesivir 2 Acute hypoxemic respiratory failure secondary to above 3 diabetes mellitus 4 Hypertension 5 Hyperlipidemia 6 Obstructive sleep apnea 7 Nonsmoker Plan Patient's pulse ox on room air Continue Decadron, complet a total of 10 day course Doing well. He is on room air oxygen. The patient was discharged home.
== END 2020-10-15 14:51 | disposition home or self-care (01) | DRG 871 ==
LOC: EC 17:40 → 6NMEDSUR 20:30
PROVIDERS: ADMIT Internal Medicine Geriatric Medicine; ATTEND Internal Medicine Geriatric Medicine
DX: A41.89 Other specified sepsis (principal); U07.1 COVID-19; J12.89 Other viral pneumonia; J96.01 Acute respiratory failure with hypoxia; E78.5 Hyperlipidemia, unspecified; E11.22 Type 2 diabetes mellitus with diabetic chronic kidney disease; G47.33 Obstructive sleep apnea (adult) (pediatric); I12.9 Hypertensive chronic kidney disease with stage 1 through stage 4 chronic kidney disease, or unspecified chronic kidney disease; N18.2 Chronic kidney disease, stage 2 (mild); Z79.4 Long term (current) use of insulin; Z79.82 Long term (current) use of aspirin; Z79.899 Other long term (current) drug therapy; Z85.828 Personal history of other malignant neoplasm of skin; Z90.89 Acquired absence of other organs; Z98.890 Other specified postprocedural states
CPT/HCPCS: 36415; 71045; 80048; 80053; 83605; 83880; 84484; 85025; 85379; 85610; 85730; 87636; 93005; 94640; 96372; 99285

== ENCOUNTER 2022-08-17 21:14 | Observation (INO) | payer MEDICARE ==
[2022-08-18] MEDS ORDERED: HEPARIN SODIUM 1,000 UN/ML (10ML VL) IV ONE (00:08)
[2022-08-18] MEDS ORDERED: HEPARIN SODIUM 1,000 UN/ML (10ML VL) IV PRN (00:08)
--- NOTE | 2022-08-18 00:10 | ED ---
Arrhythmia/Palpitations HPI - General Chief Complaint: Arrhythmia/Palpitations Stated Complaint: A Fib Time Seen by Provider: 08/18/22 00:00 Source: patient Mode of arrival: ambulatory Limitations: no limitations - History of Present Illness Initial Comments: This is a pleasant 72-year-old male presents to emergency department today complaining of palpitations for the past few days. Patient states he believes it started yesterday. Patient denying any chest pain. Patient states that his Smartt watch told them he was in atrial fibrillation. He has no history of this. PALPITATIONS, No headache, no fever or chills, no changes in vision or hearing, no sore throat or difficulty with speech, no neck pain, no chest pain or shortness of breath, no abdominal pain, no nausea or vomiting, no changes in urination or bowel movements, no numbness or tingling, no extremity pain, no skin rashes or lesions. Past medical, surgical, social, and family history reviewed. MD Complaint: "skipped beats", palpitations, irregular heart beat - Related Data Home Medications Medication Instructions Recorded Confirmed Atorvastatin [Lipitor] 10 mg PO DAILY 03/28/17 10/12/20 Losartan/Hydrochlorothiazide 1 tab PO DAILY 03/28/17 10/12/20 [Losartan-Hctz 100-25 mg Tab] atenoloL [Tenormin] 25 mg PO DAILY 03/28/17 10/12/20 metFORMIN HCL [Metformin HCl] 500 mg PO DAILY 03/28/17 10/12/20 amLODIPine [Norvasc] 10 mg PO DAILY 01/25/19 10/12/20 Ascorbic Acid [Vitamin C] 1,000 mg PO DAILY 10/12/20 10/12/20 Aspirin [Adult Low Dose Aspirin EC] 81 mg PO DAILY 10/12/20 10/12/20 Cholecalciferol [Vitamin D3 (25 2,000 unit PO DAILY 10/12/20 10/12/20 Mcg = 1000 Iu)] Insulin Glargine,Hum.rec.anlog 80 unit SQ DAILY 10/12/20 10/12/20 [Lantus Solostar Pen] Insulin Glulisine [Apidra Solostar 10 unit SQ HS 10/12/20 10/12/20 Pen] Promethazine/Dextromethorphan 5 ml PO Q4H PRN 10/12/20 10/12/20 [Promethazine-Dm 6.25-15 mg/5Ml] Zicam Rapid Melt 1 tab PO DAILY 10/12/20 10/12/20 Previous Rx's Medication Instructions Recorded Albuterol Inhaler [Ventolin Hfa 2 puff INHALATION RT-QID #1 puff 10/15/20 Inhaler] Ascorbic Acid [Vitamin C] 1,000 mg PO DAILY #10 tab 10/15/20 Pantoprazole [Protonix] 40 mg PO AC-BRKFST #30 tablet.dr 10/15/20 Zinc Sulfate [Orazinc] 220 mg PO DAILY #10 cap 10/15/20 dexAMETHasone ORAL [Hexadrol] 6 mg PO DAILY #4 tab 10/15/20 Allergies Allergy/AdvReac Type Severity Reaction Status Date / Time No Known Allergies Allergy Verified 10/12/20 21:09 Review of Systems ROS Statement: Those systems with pertinent positive or pertinent negative responses have been documented in the HPI. ROS Other: All systems not noted in ROS Statement are negative. Past Medical History Past Medical History: Diabetes Mellitus, Hyperlipidemia, Hypertension, Sleep Apnea/CPAP/BIPAP Additional Past Medical History / Comment(s): "pre skin cancer", vertigo x 2 History of Any Multi-Drug Resistant Organisms: None Reported Past Surgical History: Orthopedic Surgery, Tonsillectomy Additional Past Surgical History / Comment(s): ganglion cyst x 5 blanca hands, hemorrhoidectomy, skin "pre cancer" removed from face, arthroscopy rt knee Past Anesthesia/Blood Transfusion Reactions: Previous Problems w/ Anesthesia, Motion Sickness Additional Past Anesthesia/Blood Transfusion Reaction / Comment(s): severe stomach cramping after hemorrhoid surgery for 24 hours, thinks was something to do w/anesthesia he was given. previous anesthesia record on chart Past Psychological History: No Psychological Hx Reported Smoking Status: Never smoker Past Alcohol Use History: None Reported Past Drug Use History: None Reported - Past Family History Mother Family Medical History: No Reported History General Exam Limitations: no limitations General appearance: obese Head exam: Present: atraumatic, normocephalic, normal inspection Eye exam: Present: normal appearance, PERRL, EOMI. Absent: scleral icterus, conjunctival injection, periorbital swelling ENT exam: Present: normal exam, mucous membranes moist Neck exam: Present: normal inspection, full ROM. Absent: tenderness, meningismus, lymphadenopathy Respiratory exam: Present: normal lung sounds bilaterally. Absent: respiratory distress, wheezes, rales, rhonchi, stridor Cardiovascular Exam: Present: regular rate, irregular rhythm, normal heart sounds. Absent: systolic murmur, diastolic murmur, rubs, gallop, clicks GI/Abdominal exam: Present: soft, normal bowel sounds. Absent: distended, tenderness, guarding, rebound, rigid Extremities exam: Present: normal inspection, full ROM, normal capillary refill. Absent: tenderness, pedal edema, joint swelling, calf tenderness Back exam: Present: normal inspection Neurological exam: Present: alert, oriented X3, CN II-XII intact Psychiatric exam: Present: normal affect, normal mood Skin exam: Present: warm, dry, intact, normal color. Absent: rash Course Vital Signs 08/17/22 08/18/22 21:47 00:50 Temperature 98.7 F Pulse Rate 82 80 Respiratory 18 18 Rate Blood Pressure 137/79 154/90 O2 Sat by Pulse 97 98 Oximetry - Reevaluation(s) Reevaluation #1: 08/18/22 02:51 Medical record is reviewed Symptoms are improved here in the emergency department Patient is informed of results and questions answered Patient in no distress - Consultations Consultation #1: The case was discussed in detail with ED attending physician. Presentation, findings, treatment plan discussed in detail. Resident Dr. Schrader Consultation #2: Case discussed in detail with the on-call admitting doctor, Dr. Win. Patient admitted with cardiology consultation EKG Findings - EKG Comments: EKG Findings:: EKG done at 2151 and read by the ED attending physician reveals atrial fibrillation with a rate of 76. Normal intervals otherwise. Normal axis. No acute ST or T-wave changes. Normal QRS morphology otherwise. Medical Decision Making - Medical Decision Making Patient will be admitted for new-onset atrial fibrillation. Patient heart rate is currently 76. Patient hemodynamically stable. Low-dose heparin protocol ordered. The case was discussed in detail with ED attending physician. Presentation, findings, treatment plan discussed in detail. Tying Machine Operator Dr. Schrader - Lab Data Result diagrams: 08/18/22 00:40 08/18/22 00:40 Lab Results 08/18/22 08/18/22 08/18/22 Range/Units 00:40 00:40 00:40 WBC 10.4 (3.8-10.6) k/uL RBC 5.48 (4.30-5.90) m/uL Hgb 16.3 (13.0-17.5) gm/dL Hct 47.5 (39.0-53.0) % MCV 86.7 (80.0-100.0) fL MCH 29.8 (25.0-35.0) pg MCHC 34.3 (31.0-37.0) g/dL RDW 14.6 (11.5-15.5) % Plt Count 342 (150-450) k/uL MPV 7.3 Neutrophils % 67 % Lymphocytes % 22 % Monocytes % 6 % Eosinophils % 1 % Basophils % 1 % Neutrophils # 7.0 (1.3-7.7) k/uL Lymphocytes # 2.3 (1.0-4.8) k/uL Monocytes # 0.6 (0-1.0) k/uL Eosinophils # 0.1 (0-0.7) k/uL Basophils # 0.1 (0-0.2) k/uL PT 10.5 (9.0-12.0) sec INR 1.0 (<1.2) APTT 28.8 (22.0-30.0) sec Sodium 140 (137-145) mmol/L Potassium 4.7 (3.5-5.1) mmol/L Chloride 101 (98-107) mmol/L Carbon Dioxide 23 (22-30) mmol/L Anion Gap 16 mmol/L BUN 23 H (9-20) mg/dL Creatinine 1.09 (0.66-1.25) mg/dL Est GFR (CKD-EPI)AfAm 78 (>60 ml/min/1.73 sqM) Est GFR (CKD-EPI)NonAf 68 (>60 ml/min/1.73 sqM) Glucose 81 (74-99) mg/dL Calcium 9.6 (8.4-10.2) mg/dL Magnesium 2.2 (1.6-2.3) mg/dL Total Bilirubin 1.4 H (0.2-1.3) mg/dL AST 45 (17-59) U/L ALT 18 (4-49) U/L Alkaline Phosphatase 110 (38-126) U/L Troponin I (0.000-0.034) ng/mL Total Protein 8.2 (6.3-8.2) g/dL Albumin 4.7 (3.5-5.0) g/dL TSH 4.560 (0.465-4.680) mIU/L Free T4 1.12 (0.78-2.19) ng/dL 08/18/22 Range/Units 00:40 WBC (3.8-10.6) k/uL RBC (4.30-5.90) m/uL Hgb (13.0-17.5) gm/dL Hct (39.0-53.0) % MCV (80.0-100.0) fL MCH (25.0-35.0) pg MCHC (31.0-37.0) g/dL RDW (11.5-15.5) % Plt Count (150-450) k/uL MPV Neutrophils % % Lymphocytes % % Monocytes % % Eosinophils % % Basophils % % Neutrophils # (1.3-7.7) k/uL Lymphocytes # (1.0-4.8) k/uL Monocytes # (0-1.0) k/uL Eosinophils # (0-0.7) k/uL Basophils # (0-0.2) k/uL PT (9.0-12.0) sec INR (<1.2) APTT (22.0-30.0) sec Sodium (137-145) mmol/L Potassium (3.5-5.1) mmol/L Chloride (98-107) mmol/L Carbon Dioxide (22-30) mmol/L Anion Gap mmol/L BUN (9-20) mg/dL Creatinine (0.66-1.25) mg/dL Est GFR (CKD-EPI)AfAm (>60 ml/min/1.73 sqM) Est GFR (CKD-EPI)NonAf (>60 ml/min/1.73 sqM) Glucose (74-99) mg/dL Calcium (8.4-10.2) mg/dL Magnesium (1.6-2.3) mg/dL Total Bilirubin (0.2-1.3) mg/dL AST (17-59) U/L ALT (4-49) U/L Alkaline Phosphatase (38-126) U/L Troponin I <0.012 (0.000-0.034) ng/mL Total Protein (6.3-8.2) g/dL Albumin (3.5-5.0) g/dL TSH (0.465-4.680) mIU/L Free T4 (0.78-2.19) ng/dL Disposition Clinical Impression: Atrial fibrillation Narrative: New-onset atrial fibrillation Disposition: ADMITTED IP TO THIS HOSP Condition: Stable Is patient prescribed a controlled substance at d/c from ED?: No Time of Disposition: 00:10 Decision to Admit Reason: Admit from EC Decision Time: 00:10
[2022-08-18] MEDS ORDERED: HEPARIN SOD,PORK IN 0.45% NACL 25,000 UNIT in 0.45% NACL 1 250ML.BAG IV SCH (00:15)
--- NOTE | 2022-08-18 00:26 | XR ---
EXAMINATION TYPE: XR chest 1V portable DATE OF EXAM: 08/18/2022 COMPARISON: NONE HISTORY: Dysrhythmia TECHNIQUE: Single view FINDINGS: There is no heart failure nor confluent pneumonic infiltrate. Costophrenic angles are clear there are chest leads. Bony thorax is intact. IMPRESSION: No active cardiopulmonary disease. There is clearing of the bilateral pulmonary infiltrat es compared to old exam.
[2022-08-18 00:47] LABS: Basophils # (A) 0.1 k/uL (0-0.2); Basophils % (A) 1 %; Eosinophils # (A) 0.1 k/uL (0-0.7); Eosinophils % (A) 1 %; HCT 47.5 % (39.0-53.0); HGB 16.3 gm/dL (13.0-17.5); Lymphocytes # (A) 2.3 k/uL (1.0-4.8); Lymphocytes % (A) 22 %; MCH 29.8 pg (25.0-35.0); MCHC 34.3 g/dL (31.0-37.0); MCV 86.7 fL (80.0-100.0); Mean Platelet Volume 7.3; Monocytes # (A) 0.6 k/uL (0-1.0); Monocytes % (A) 6 %; Neutrophils % (A) 67 %; Platelet Count 342 k/uL (150-450); RBC 5.48 m/uL (4.30-5.90); RDW 14.6 % (11.5-15.5); WBC 10.4 k/uL (3.8-10.6)
[2022-08-18 00:58] LABS: Partial Thromboplastin Time 28.8 sec (22.0-30.0); Prothrombin Time 10.5 sec (9.0-12.0)
[2022-08-18] MEDS ORDERED: ACETAMINOPHEN TAB 325 MG TAB PO PRN (01:17)
[2022-08-18] MEDS ORDERED: NALOXONE 0.4 MG/ML 1 ML VIAL IV PRN (01:17)
[2022-08-18] MEDS ORDERED: ONDANSETRON 4 MG/2 ML VIAL IVP PRN (01:17)
[2022-08-18 01:26] LABS: Albumin 4.7 g/dL (3.5-5.0); Calcium 9.6 mg/dL (8.4-10.2); Magnesium 2.2 mg/dL (1.6-2.3); Total Bilirubin 1.4 mg/dL (0.2-1.3); Total Protein 8.2 g/dL (6.3-8.2)
[2022-08-18] MEDS ORDERED: SODIUM CHLORIDE 0.9% 1,000 ML IV SCH (01:30)
[2022-08-18 01:34] LABS: Potassium 4.7 mmol/L (3.5-5.1)
[2022-08-18 01:41] LABS: T4, Free (Free Thyroxine) 1.12 ng/dL (0.78-2.19)
[2022-08-18 04:23] VITALS: RESP 16
[2022-08-18 05:49] LABS: Glucose,Whole Blood 157 mg/dL (70-110)
[2022-08-18] MEDS ORDERED: PANTOPRAZOLE 40 MG/10 ML VIAL IV SCH (09:00)
[2022-08-18] MEDS ORDERED: APIXABAN 5 MG TAB PO SCH (10:30)
[2022-08-18 11:28] LABS: Glucose,Whole Blood 136 mg/dL (70-110)
[2022-08-18 12:02] LABS: Appearance,Urine Clear (Clear); Bilirubin,Urine Negative (Negative); Blood,Urine Negative (Negative); Color,Urine Light Yellow; Glucose,Urine (UA) Negative (Negative); Ketones,Urine Negative (Negative); Leukocyte Esterase,Urine Negative (Negative); Nitrite,Urine Negative (Negative); Protein,Urine Negative (Negative); Urobilinogen,Urine <2.0 mg/dL (<2.0)
--- NOTE | 2022-08-18 12:43 | P.CRDCN ---
History of Present Illness Consult date: 08/18/22 Consult reason: atrial fibrillation History of present illness: This is Beto Davalos NP, I'm dictating on behalf of Dr. Hairston's H&P and A&P The patient was interviewed and examined. HPI: Patient is a pleasant 72-year-old male whom we were consult on for new onset atrial fibrillation. Patient states that on Friday evening he felt fluttering in his chest, but states he checked his apple watch and noticed no change to his EKG. He states on Friday he noted that in the evening he started to feel fluttering, which stayed, and then noticed that his apple watch was buzzing in alerting him that he was in atrial fibrillation. This is what brought him to the hospital for evaluation. He states that he never felt anything other than the fluttering in his chest, and denied dizziness, shortness of breath, or chest pain during the episode. Upon arrival to the emergency department EKG was completed which did verify atrial fibrillation with controlled ventricular response. This is new onset for the patient as he has never been diagnosed with atrial fibrillation before. He does have a significant past medical history for diabetes, hyperlipidemia, hypertension, and sleep apnea. At the time of this interview the patient reports that he feels fine. He does not feel the fluttering in his chest like he did previously. He is currently denying chest pain, shortness of breath, although he states the nurse told him he seemed to be short of breath after walking to the bathroom, and dizziness. ROS: [No fever, chills, or rigors] [no cough, phlegm, or expectoration] [no nausea, vomiting, or diarrhea] [no hematuria, dysuria] [no musculoskelatal complaints] [no strokes or seizures] [no skin lesions] EXAMINATION: GENERAL: Well-appearing, well-nourished and in no acute distress. NECK: Supple without JVD or thyromegaly. LUNGS: Breath sounds clear to auscultation bilaterally. Respiration equal and unlabored. No wheezes, rales or rhonchi. HEART: Regular rate and rhythm without murmurs, rubs or gallops. S1 and S2 heard. EXTREMITIES: Normal range of motion, no edema. No clubbing or cyanosis. Peripheral pulses intact and strong. REVIEW OF LABS, ECG & MEDICAL DATA: LABS: White count 10.4, hemoglobin 16.3, platelets 342, sodium 140, potassium 4.7, B1 23, creatinine 1.09, calcium 9.6, magnesium 2.2, serial troponins less than 0.012, BNP 564, TSH 4.56, free T4 1.12 EKG: Atrial fibrillation with controlled ventricular response IMAGING: Chest x-ray dated 08/18/2022 demonstrates no active cardiopulmonary disease. There is clearing of the bilateral pulmonary infiltrates compared to old exam. VITALS: Temp 98.7, pulse 72, respirations 16, blood pressure 131/78, O2 saturation 94% on room air IMPRESSION: 1. Atrial fibrillation with controlled ventricular response, new onset 2. Hypertension, on atenolol, losartan-hydrochlorothiazide, and amlodipine 3. Diabetes mellitus, controlled with metformin, insulin glargine, and insulin glulisine PLAN: Lipid panel BNP Increase atorvastatin to 20 mg daily Start Eliquis 5 mg twice a day Patient should continue his Tenormin, amlodipine, and losartan/hydrochlorothiazide Discontinue aspirin Patient may be discharged from a cardiology standpoint Follow-up with Dr. Hairston in the office. Thank you for the consult and allowing us to participate in the care of this patient. Past Medical History Past Medical History: Diabetes Mellitus, Hyperlipidemia, Hypertension, Sleep Apnea/CPAP/BIPAP Additional Past Medical History / Comment(s): "pre skin cancer", vertigo x 2 History of Any Multi-Drug Resistant Organisms: None Reported Past Surgical History: Orthopedic Surgery, Tonsillectomy Additional Past Surgical History / Comment(s): ganglion cyst x 5 blanca hands, hemorrhoidectomy, skin "pre cancer" removed from face, arthroscopy rt knee Past Anesthesia/Blood Transfusion Reactions: Previous Problems w/ Anesthesia, Motion Sickness Additional Past Anesthesia/Blood Transfusion Reaction / Comment(s): severe stomach cramping after hemorrhoid surgery for 24 hours, thinks was something to do w/anesthesia he was given. previous anesthesia record on chart Past Psychological History: No Psychological Hx Reported Smoking Status: Never smoker Past Alcohol Use History: None Reported Past Drug Use History: None Reported - Past Family History Mother Family Medical History: No Reported History Medications and Allergies Home Medications Medication Instructions Recorded Confirmed Type Atorvastatin [Lipitor] 10 mg PO DAILY 03/28/17 10/12/20 History Losartan/Hydrochlorothiazide 1 tab PO DAILY 03/28/17 10/12/20 History [Losartan-Hctz 100-25 mg Tab] atenoloL [Tenormin] 25 mg PO DAILY 03/28/17 10/12/20 History metFORMIN HCL [Metformin HCl] 500 mg PO DAILY 03/28/17 10/12/20 History amLODIPine [Norvasc] 10 mg PO DAILY 01/25/19 10/12/20 History Ascorbic Acid [Vitamin C] 1,000 mg PO DAILY 10/12/20 10/12/20 History Aspirin [Adult Low Dose Aspirin EC] 81 mg PO DAILY 10/12/20 10/12/20 History Cholecalciferol [Vitamin D3 (25 2,000 unit PO DAILY 10/12/20 10/12/20 History Mcg = 1000 Iu)] Insulin Glargine,Hum.rec.anlog 80 unit SQ DAILY 10/12/20 10/12/20 History [Lantus Solostar Pen] Insulin Glulisine [Apidra Solostar 10 unit SQ HS 10/12/20 10/12/20 History Pen] Promethazine/Dextromethorphan 5 ml PO Q4H PRN 10/12/20 10/12/20 History [Promethazine-Dm 6.25-15 mg/5Ml] Zicam Rapid Melt 1 tab PO DAILY 10/12/20 10/12/20 History Albuterol Inhaler [Ventolin Hfa 2 puff INHALATION RT-QID #1 puff 10/15/20 Rx Inhaler] Ascorbic Acid [Vitamin C] 1,000 mg PO DAILY #10 tab 10/15/20 Rx Pantoprazole [Protonix] 40 mg PO AC-BRKFST #30 tablet.dr 10/15/20 Rx Zinc Sulfate [Orazinc] 220 mg PO DAILY #10 cap 10/15/20 Rx dexAMETHasone ORAL [Hexadrol] 6 mg PO DAILY #4 tab 10/15/20 Rx Apixaban [Eliquis] 5 mg PO BID #180 tab 08/18/22 Rx Allergies Allergy/AdvReac Type Severity Reaction Status Date / Time No Known Allergies Allergy Verified 08/18/22 12:34 Physical Exam Vitals: Vital Signs Temp Pulse Pulse Resp BP BP Pulse Ox 08/18/22 08:00 98.7 F 72 16 131/78 94 L 08/18/22 04:00 97.7 F 73 16 118/61 94 L 08/18/22 02:39 97.6 F 66 17 126/78 97 08/18/22 01:17 97 08/18/22 00:50 80 18 154/90 98 08/17/22 21:47 98.7 F 82 18 137/79 97 Intake and Output 08/17/22 08/18/22 08/18/22 22:59 06:59 14:59 Intake Total 191.463 Balance 191.463 Intake: Intake, IV Titration 73.463 Amount Heparin Sod,Pork in 0.45% 73.463 NaCl 25,000 unit In 0.45 % NaCl 1 250ml.bag @ 7.87 UNITS/KG/HR 9.995 mls/hr IV .Q24H [facility] Rx#: [id number] Oral 118 Other: Voiding Method Toilet # Voids 1 Weight 127.006 kg 127.006 kg Results 08/18/22 00:40 08/18/22 00:40 Cardiac Enzymes 08/18/22 08/18/22 08/18/22 Range/Units 00:40 00:40 03:17 AST 45 (17-59) U/L Troponin I <0.012 <0.012 (0.000-0.034) ng/mL 08/18/22 Range/Units 06:38 AST (17-59) U/L Troponin I <0.012 (0.000-0.034) ng/mL Coagulation 08/18/22 08/18/22 Range/Units 00:40 06:38 PT 10.5 (9.0-12.0) sec APTT 28.8 28.2 (22.0-30.0) sec CBC 08/18/22 Range/Units 00:40 WBC 10.4 (3.8-10.6) k/uL RBC 5.48 (4.30-5.90) m/uL Hgb 16.3 (13.0-17.5) gm/dL Hct 47.5 (39.0-53.0) % Plt Count 342 (150-450) k/uL Comprehensive Metabolic Panel 08/18/22 Range/Units 00:40 Sodium 140 (137-145) mmol/L Potassium 4.7 (3.5-5.1) mmol/L Chloride 101 (98-107) mmol/L Carbon Dioxide 23 (22-30) mmol/L BUN 23 H (9-20) mg/dL Creatinine 1.09 (0.66-1.25) mg/dL Glucose 81 (74-99) mg/dL Calcium 9.6 (8.4-10.2) mg/dL AST 45 (17-59) U/L ALT 18 (4-49) U/L Alkaline Phosphatase 110 (38-126) U/L Total Protein 8.2 (6.3-8.2) g/dL Albumin 4.7 (3.5-5.0) g/dL Current Medications Generic Name Dose Route Start Last Admin Trade Name Freq PRN Reason Stop Dose Admin Acetaminophen 650 mg 08/18/22 01:17 Acetaminophen Tab 325 Mg Tab PO Q6HR PRN Mild Pain or Fever > 100.5 Apixaban 5 mg 08/18/22 10:30 08/18/22 10:42 Apixaban 5 Mg Tab PO 5 mg BID JUAN JOSÉ Administration Protocol Heparin Sodium (Porcine) 0 unit 08/18/22 00:08 08/18/22 08:11 Heparin Sodium 1,000 Un/Ml (10ml Vl) IV 4,000 unit PER PROTOCOL PRN Administration Low PTT Protocol Heparin Sodium/Sodium Chloride 250 mls @ 9.995 mls/hr 08/18/22 00:15 08/18/22 08:11 25,000 unit/ Sodium Chloride IV 10.83 units/kg/hr .Q24H JUAN JOSÉ 13.76 mls/hr Titration Protocol 7.87 UNITS/KG/HR Sodium Chloride 1,000 mls @ 20 mls/hr 08/18/22 01:30 08/18/22 01:55 Saline 0.9% IV 20 mls/hr .Q24H JUAN JOSÉ Administration Naloxone HCl 0.2 mg 08/18/22 01:17 Naloxone 0.4 Mg/Ml 1 Ml Vial IV Q2M PRN Opioid Reversal Ondansetron HCl 4 mg 08/18/22 01:17 Ondansetron 4 Mg/2 Ml Vial IVP Q8HR PRN Nausea And Vomiting Pantoprazole Sodium 40 mg 08/18/22 09:00 08/18/22 08:11 Pantoprazole 40 Mg/10 Ml Vial IV 40 mg DAILY JUAN JOSÉ Administration Intake and Output 08/17/22 08/18/22 08/18/22 22:59 06:59 14:59 Intake Total 191.463 Balance 191.463 Intake: Intake, IV Titration 73.463 Amount Heparin Sod,Pork in 0.45% 73.463 NaCl 25,000 unit In 0.45 % NaCl 1 250ml.bag @ 7.87 UNITS/KG/HR 9.995 mls/hr IV .Q24H [facility] Rx#: [id number] Oral 118 Other: Voiding Method Toilet # Voids 1 Weight 127.006 kg 127.006 kg 08/18/22 00:40 08/18/22 00:40
[2022-08-18 13:15] VITALS: BP 132/79; PULSE 66; TEMP 98.5
[2022-08-18 16:20] LABS: LDL Cholesterol,Calculated 75.6 mg/dL (0.0-131.0)
--- NOTE | 2022-08-18 17:05 | P.HPIM ---
History of Present Illness H&P Date: 08/18/22 Chief Complaint: Flutter This is a pleasant 72-year-old patient, follows with Dr. Claude Burks. Chronic stable medical conditions include diabetes, hypertension, hyperlipidemia, obstructive sleep apnea uses CPAP. Yesterday patient on his apical wash noted that he was heart rate was irregular. Late in the evening when watching television again noticed that his heart rate was irregular. [place] some fluttering. Did break out in a sweat. No dizziness, lightheadedness. Decided to come in. Found to be in atrial fibrillation. Heart rate was 76. Put on IV heparin. Review of systems: GEN.: None EYES: None HEENT: None NECK: None RESPIRATORY: None CARDIOVASCULAR: As above] GASTROINTESTINAL: None GENITOURINARY: None MUSCULOSKELETAL: None LYMPHATICS: None HEMATOLOGICAL: None PSYCHIATRY: None NEUROLOGICAL: None Past medical history to include: Diabetes mellitus type 2, hypertension, hyperlipidemia, arthritis sleep apnea uses CPAP, Social history: . No smoking or alcohol. Family history: Reviewed, noncontributory to presentation Physical examination: VITAL SIGNS: 98.7, 82, 18, 1 37 x 79, 97% room air GENERAL: BMI 38, sitting on bed awake, not in distress. EYES: Pupils equal. Conjunctiva normal. HEENT: External appearance of nose and ears normal, oral cavity grossly normal. NECK: JVD not raised; masses not palpable. HEART: Heart sounds irregular; no edema. LUNGS: Respiratory rate normal; clear to auscultation. ABDOMEN: Soft, nontender, liver spleen not palpable, no masses palpable. PSYCH: Alert and oriented x3; mood and affect normal. MUSCULOSKELETAL:No Clubbing/cyanosis;muscles-grossly intact NEUROLOGICAL: Cranial nerves grossly intact; no facial asymmetry, power and sensation grossly intact. LYMPHATICS: No lymph nodes palpable in the axilla and neck INVESTIGATIONS, reviewed in the clinical context: White count 10.4 hemoglobin 16.3 platelets 342 potassium 4.7 creatinine 1.09 Troponin I 3 less than 0.012 LDL 75 TSH 4.5 EKG tracing personally reviewed by me-atrial fibrillation, rate 76 Chest x-ray film personally reviewed by me-portable: Borderline cardiomegaly Assessment and plan: -New onset of atrial fibrillation. Heart rate controlled at presentation. Beta rambo continued. IV heparin. Cardiology consulted. Telemetry. -Diabetes mellitus type 2 on oral hypoglycemic Metformin. Follow Accu-Cheks -Essential hypertension Tenormin, Norvasc, losartan hydrochlorothiazide -Hyperlipidemia Lipitor -Obesity BMI 38 Weight loss measures -IV heparin monitoring Follow PTT Telemetry. Cardiology consulted. IV heparin. Resume home medications. Discussed with patient. Past Medical History Past Medical History: Diabetes Mellitus, Hyperlipidemia, Hypertension, Sleep Apnea/CPAP/BIPAP Additional Past Medical History / Comment(s): "pre skin cancer", vertigo x 2 History of Any Multi-Drug Resistant Organisms: None Reported Past Surgical History: Orthopedic Surgery, Tonsillectomy Additional Past Surgical History / Comment(s): ganglion cyst x 5 blanca hands, hemorrhoidectomy, skin "pre cancer" removed from face, arthroscopy rt knee Past Anesthesia/Blood Transfusion Reactions: Previous Problems w/ Anesthesia, Motion Sickness Additional Past Anesthesia/Blood Transfusion Reaction / Comment(s): severe stomach cramping after hemorrhoid surgery for 24 hours, thinks was something to do w/anesthesia he was given. previous anesthesia record on chart Past Psychological History: No Psychological Hx Reported Smoking Status: Never smoker Past Alcohol Use History: None Reported Past Drug Use History: None Reported - Past Family History Mother Family Medical History: No Reported History Medications and Allergies Home Medications Medication Instructions Recorded Confirmed Type Losartan/Hydrochlorothiazide 1 tab PO DAILY 03/28/17 08/18/22 History [Losartan-Hctz 100-25 mg Tab] atenoloL [Tenormin] 25 mg PO DAILY 03/28/17 08/18/22 History metFORMIN HCL [Metformin HCl] 500 mg PO DAILY 03/28/17 08/18/22 History Insulin Glulisine [Apidra Solostar 10 unit SQ HS 10/12/20 08/18/22 History Pen] Albuterol Inhaler [Ventolin Hfa 2 puff INHALATION RT-QID PRN 08/18/22 08/18/22 History Inhaler] Apixaban [Eliquis] 5 mg PO BID #180 tab 08/18/22 Rx Atorvastatin [Lipitor] 20 mg PO HS #30 tablet 08/18/22 Rx amLODIPine [Norvasc] 10 mg PO HS #0 08/18/22 08/18/22 Rx Allergies Allergy/AdvReac Type Severity Reaction Status Date / Time No Known Allergies Allergy Verified 08/18/22 12:34 Physical Exam Vitals: Vital Signs Temp Pulse Pulse Resp BP BP Pulse Ox 08/18/22 08:00 98.7 F 72 16 131/78 94 L 08/18/22 04:00 97.7 F 73 16 118/61 94 L 08/18/22 02:39 97.6 F 66 17 126/78 97 08/18/22 01:17 97 08/18/22 00:50 80 18 154/90 98 08/17/22 21:47 98.7 F 82 18 137/79 97 Intake and Output 08/17/22 08/18/22 08/18/22 22:59 06:59 14:59 Intake Total 73.463 Balance 73.463 Intake: Intake, IV Titration 73.463 Amount Heparin Sod,Pork in 0.45% 73.463 NaCl 25,000 unit In 0.45 % NaCl 1 250ml.bag @ 7.87 UNITS/KG/HR 9.995 mls/hr IV .Q24H [facility] Rx#: [id number] Other: Voiding Method Toilet # Voids 1 Weight 127.006 kg 127.006 kg Results CBC & Chem 7: 08/18/22 00:40 08/18/22 00:40 Labs: Abnormal Lab Results - Last 24 Hours (Table) 08/18/22 08/18/22 08/18/22 Range/Units 00:40 05:47 11:25 BUN 23 H (9-20) mg/dL POC Glucose (mg/dL) 157 H 136 H (70-110) mg/dL Total Bilirubin 1.4 H (0.2-1.3) mg/dL Thrombosis Risk Factor Assmnt - Choose All That Apply Any of the Below Risk Factors Present?: Yes Each Factor Represents 1 point: Obesity (BMI >25) Other Risk Factors: Yes Each Risk Factor Represents 2 Points: Age 61-74 years Other congenital or acquired thrombophilia - If yes, enter type in comment: No Thrombosis Risk Factor Assessment Total Risk Factor Score: 3 Thrombosis Risk Factor Assessment Level: Moderate Risk
--- NOTE | 2022-08-18 18:44 | P.DS ---
Providers Date of admission: 08/18/22 01:22 Expected date of discharge: 08/18/22 Attending physician: Chicho Win Consults: 08/18/22 01:17 Consult Physician Urgent Consulting Provider: Michael Bass Consult Reason/Comments: new onset A-fib Do you want consulting provider notified?: Yes, Notify in am Primary care physician: Claude Burks [facility] Course: Chief Complaint: Flutter This is a pleasant 72-year-old patient, follows with Dr. Claude Burks. Chronic stable medical conditions include diabetes, hypertension, hyperlipidemia, obstructive sleep apnea uses CPAP. Yesterday patient on his apical wash noted that he was heart rate was irregular. Late in the evening when watching television again noticed that his heart rate was irregular. [place] some fluttering. Did break out in a sweat. No dizziness, lightheadedness. Decided to come in. Found to be in atrial fibrillation. Heart rate was 76. Put on IV heparin. Patient is seen by Dr. Brandon Hairston from cardiology. IV heparin discontinued. Put on eliquis. Lipitor increased to 20 mg. Care was discussed with the patient. Questions answered. He'll follow up with him in the office. Past medical history to include: Diabetes mellitus type 2, hypertension, hyperlipidemia, arthritis sleep apnea uses CPAP, Social history: . No smoking or alcohol. Family history: Reviewed, noncontributory to presentation Physical examination: VITAL SIGNS: 98.5, 66, 16, 132.79, 95% room air GENERAL: BMI 38, sitting on bed awake, comfortable EYES: Pupils equal. Conjunctiva normal. HEENT: External appearance of nose and ears normal, oral cavity grossly normal. NECK: JVD not raised; masses not palpable. HEART: Heart sounds irregular; no edema. LUNGS: Respiratory rate normal; clear to auscultation. ABDOMEN: Soft, nontender, liver spleen not palpable, no masses palpable. PSYCH: Alert and oriented x3; mood and affect normal. INVESTIGATIONS, reviewed in the clinical context: UA: Negative White count 10.4 hemoglobin 16.3 platelets 342 potassium 4.7 creatinine 1.09 Troponin I 3 less than 0.012 LDL 75 TSH 4.5 EKG tracing personally reviewed by me-atrial fibrillation, rate 76 Chest x-ray film personally reviewed by me-portable: Borderline cardiomegaly Assessment and plan: -New onset of atrial fibrillation. Heart rate controlled at presentation. Beta rambo continued. IV heparin-changed to eliquis. Seen by cardiology Dr. Brandon Hairston Telemetry. -Diabetes mellitus type 2 on oral hypoglycemic Metformin. Follow Accu-Cheks -Essential hypertension Tenormin, Norvasc, losartan hydrochlorothiazide -Hyperlipidemia Lipitor -Obesity BMI 38 Weight loss measures -IV heparin monitoring Follow PTT Disposition: Home Plan - Discharge Summary Discharge Rx Participant: No New Discharge Prescriptions: New Atorvastatin [Lipitor] 20 mg PO HS #30 tablet Apixaban [Eliquis] 5 mg PO BID #180 tab Continue metFORMIN HCL [Metformin HCl] 500 mg PO DAILY Losartan/Hydrochlorothiazide [Losartan-Hctz 100-25 mg Tab] 1 tab PO DAILY atenoloL [Tenormin] 25 mg PO DAILY Insulin Glulisine [Apidra Solostar Pen] 10 unit SQ HS Albuterol Inhaler [Ventolin Hfa Inhaler] 2 puff INHALATION RT-QID PRN PRN Reason: Shortness Of Breath Changed amLODIPine [Norvasc] 10 mg PO HS #0 Discontinued Atorvastatin [Lipitor] 10 mg PO DAILY Aspirin [Adult Low Dose Aspirin EC] 81 mg PO DAILY Discharge Medication List Losartan/Hydrochlorothiazide [Losartan-Hctz 100-25 mg Tab] 1 tab PO DAILY 03/28/17 [History] atenoloL [Tenormin] 25 mg PO DAILY 03/28/17 [History] metFORMIN HCL [Metformin HCl] 500 mg PO DAILY 03/28/17 [History] Insulin Glulisine [Apidra Solostar Pen] 10 unit SQ HS 10/12/20 [History] Albuterol Inhaler [Ventolin Hfa Inhaler] 2 puff INHALATION RT-QID PRN 08/18/22 [History] Apixaban [Eliquis] 5 mg PO BID #180 tab 08/18/22 [Rx] Atorvastatin [Lipitor] 20 mg PO HS #30 tablet 08/18/22 [Rx] amLODIPine [Norvasc] 10 mg PO HS #0 08/18/22 [Rx] Follow up Appointment(s)/Referral(s): Guilherme Hairston MD [STAFF PHYSICIAN] - 2 Weeks Claude Burks MD [Primary Care Provider] - 1-2 days Patient Instructions/Handouts: A-fib (Atrial Fibrillation) (DC) Discharge Disposition: HOME SELF-CARE
== END 2022-08-18 14:50 | disposition home or self-care (01) ==
LOC: EC 21:14 → 3SCARD 08-18 01:22
PROVIDERS: ADMIT Hospitalist; ATTEND Hospitalist
DX: I48.91 Unspecified atrial fibrillation (principal); E11.9 Type 2 diabetes mellitus without complications; E78.5 Hyperlipidemia, unspecified; I11.9 Hypertensive heart disease without heart failure; M19.90 Unspecified osteoarthritis, unspecified site; G47.33 Obstructive sleep apnea (adult) (pediatric); Z87.2 Personal history of diseases of the skin and subcutaneous tissue; Z98.890 Other specified postprocedural states; E66.9 Obesity, unspecified; Z68.38 Body mass index [BMI] 38.0-38.9, adult; Z79.01 Long term (current) use of anticoagulants; Z79.84 Long term (current) use of oral hypoglycemic drugs; Z79.82 Long term (current) use of aspirin; Z79.4 Long term (current) use of insulin; Z79.52 Long term (current) use of systemic steroids; Z79.899 Other long term (current) drug therapy
CPT/HCPCS: 96376 ×2; 96366; 96375; 96365; 99285; 36415; 93005; 84439; 83880; 80061; 80053; 83735; 84443; 84484; 85025; 85610; 85730; 81003; 71045; G0378; J1644 ×2; C9113

== ENCOUNTER 2023-11-17 07:46 | Day surgery (SDC) | payer MEDICARE ==
[2023-11-12 12:15] VITALS: BMI 34.5
[2023-11-17] MEDS ORDERED: SODIUM CHLORIDE 0.9% 1,000 ML IV ONE (07:56)
[2023-11-17 08:23] LABS: Basophils # (A) 0.1 k/uL (0-0.2); Basophils % (A) 1 %; Eosinophils # (A) 0.1 k/uL (0-0.7); Eosinophils % (A) 2 %; HCT 46.2 % (39.0-53.0); HGB 15.5 gm/dL (13.0-17.5); Lymphocytes % (A) 29 %; MCHC 33.6 g/dL (31.0-37.0); MCV 86.4 fL (80.0-100.0); Mean Platelet Volume 6.9; Monocytes # (A) 0.4 k/uL (0-1.0); Monocytes % (A) 5 %; Neutrophils # (A) 4.2 k/uL (1.3-7.7); Neutrophils % (A) 60 %; Platelet Count 345 k/uL (150-450); RBC 5.35 m/uL (4.30-5.90); RDW 14.2 % (11.5-15.5)
[2023-11-17 08:35] LABS: Glucose,Whole Blood 129 mg/dL (70-110)
[2023-11-17] MEDS ORDERED: HEPARIN SODIUM,PORCINE 10,000 UNIT/ML 1 ML VIAL ONE (09:55)
[2023-11-17] MEDS ORDERED: PHENYLEPHRINE 10 MG/ML VIAL ONE (09:55)
[2023-11-17] MEDS ORDERED: HEPARIN SODIUM,PORCINE 5,000 UNIT/ML 1 ML VIAL ONE (09:55)
[2023-11-17] MEDS ORDERED: MIDAZOLAM 2 MG/2 ML VIAL ONE (09:55)
[2023-11-17] MEDS ORDERED: PROPOFOL 10 MG/ML 20 ML VIAL IV ONE (09:55)
[2023-11-17] MEDS ORDERED: LIDOCAINE 1% INJ 10MG/ML (20 ML MDV) ONE (09:55)
[2023-11-17] MEDS ORDERED: SUCCINYLCHOLINE CHLORIDE 200 MG/10 ML VIAL IV ONE (09:55)
[2023-11-17] MEDS ORDERED: HYDROmorphone (PF) 1 MG/ML ONE (09:55)
[2023-11-17] MEDS ORDERED: fentaNYL (PF) 50 MCG/ML 2 ML AMP ONE (09:55)
[2023-11-17] MEDS ORDERED: HEPARIN SOD,PORK IN 0.45% NACL 25,000 UNIT in 0.45% NACL 1 250ML.BAG IV ONE (10:35)
[2023-11-17] MEDS ORDERED: LIDOCAINE 1% INJ 10MG/ML (20 ML MDV) SQ ONE (10:37)
[2023-11-17 10:47] LABS: ALT 17 U/L (4-49); African American GFR (CKD) >90 (>60 ml/min/1.73 sqM); Albumin 3.9 g/dL (3.5-5.0); Anion Gap 9 mmol/L; Blood Urea Nitrogen 17 mg/dL (9-20); Calcium 8.9 mg/dL (8.4-10.2); Carbon Dioxide 28 mmol/L (22-30); Chloride 102 mmol/L (98-107); Glucose 135 mg/dL (74-99); Non-African American GFR(CKD) 81 (>60 ml/min/1.73 sqM); Sodium 139 mmol/L (137-145); Total Bilirubin 1.1 mg/dL (0.2-1.3); Total Protein 6.8 g/dL (6.3-8.2)
[2023-11-17 11:03] LABS: AST 25 U/L (17-59); Alkaline Phosphatase 113 U/L (38-126); Potassium 3.5 mmol/L (3.5-5.1)
[2023-11-17] MEDS ORDERED: IOPAMIDOL-370 100ML BTL INJ ONE (12:30)
[2023-11-17] MEDS ORDERED: HYDROcodone/APAP 5-325MG 1 EACH TAB PO PRN (13:09)
[2023-11-17] MEDS ORDERED: ACETAMINOPHEN TAB 325 MG TAB PO PRN (13:09)
--- NOTE | 2023-11-17 13:24 | P.HPCAR ---
History of Present Illness This is Dr. 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 EXAMINATION: Blood pressure 132/78 mmHg afebrile Pulse rate in the 70s Heart sounds S1 and S2 normal No JVD no hepatojugular reflux Abdomen soft nontender No lower extremity edema REVIEW OF LABS, ECG & MEDICAL DATA White count 7000, hematocrit 46 Sodium 139 potassium 3.5 BUN 17 creatinine 0.94 TSH 2.1 Physical Exam Vitals: Vital Signs Temp Pulse Pulse Resp BP Pulse Ox 11/17/23 13:15 83 16 128/63 96 11/17/23 13:01 96.8 F L 87 16 132/78 96 11/17/23 08:22 98.1 F 78 16 150/75 97 Intake and Output 11/16/23 11/17/23 11/17/23 22:59 06:59 14:59 Intake Total 681 Balance 681 Intake: IV 681 Other: Weight 119.3 kg Past Medical History Past Medical History: Diabetes Mellitus, Hyperlipidemia, Hypertension, Sleep Apnea/CPAP/BIPAP Additional Past Medical History / Comment(s): See Dr Hairston H&P,penile implant,"pre skin cancer", vertigo x 2,suses cpap History of Any Multi-Drug Resistant Organisms: None Reported Past Surgical History: Orthopedic Surgery, Tonsillectomy Additional Past Surgical History / Comment(s): ganglion cyst x 5 blanca hands, hemorrhoidectomy, skin "pre cancer" removed from face, arthroscopy rt knee Past Anesthesia/Blood Transfusion Reactions: Previous Problems w/ Anesthesia, Motion Sickness Additional Past Anesthesia/Blood Transfusion Reaction / Comment(s): severe stomach cramping after hemorrhoid surgery for 24 hours, thinks was something to do w/anesthesia he was given. no hx blood transfusion Smoking Status: Never smoker - Past Family History Mother Family Medical History: No Reported History Physical Examination Vital Signs Temp Pulse Pulse Resp BP Pulse Ox 11/17/23 13:15 83 16 128/63 96 11/17/23 13:01 96.8 F L 87 16 132/78 96 11/17/23 08:22 98.1 F 78 16 150/75 97 Intake and Output 11/16/23 11/17/23 11/17/23 22:59 06:59 14:59 Intake Total 681 Balance 681 Intake: IV 681 Other: Weight 119.3 kg Results 11/17/23 08:10 11/17/23 09:27 Cardiac Enzymes 11/17/23 Range/Units 09:27 AST 25 (17-59) U/L CBC 11/17/23 Range/Units 08:10 WBC 7.0 (3.8-10.6) k/uL RBC 5.35 (4.30-5.90) m/uL Hgb 15.5 (13.0-17.5) gm/dL Hct 46.2 (39.0-53.0) % Plt Count 345 (150-450) k/uL Comprehensive Metabolic Panel 11/17/23 Range/Units 09:27 Sodium 139 (137-145) mmol/L Potassium 3.5 (3.5-5.1) mmol/L Chloride 102 (98-107) mmol/L Carbon Dioxide 28 (22-30) mmol/L BUN 17 (9-20) mg/dL Creatinine 0.94 (0.66-1.25) mg/dL Glucose 135 H (74-99) mg/dL Calcium 8.9 (8.4-10.2) mg/dL AST 25 (17-59) U/L ALT 17 (4-49) U/L Alkaline Phosphatase 113 (38-126) U/L Total Protein 6.8 (6.3-8.2) g/dL Albumin 3.9 (3.5-5.0) g/dL Current Medications Generic Name Dose Route Start Last Admin Trade Name Freq PRN Reason Stop Dose Admin Acetaminophen 650 mg 11/17/23 13:09 Acetaminophen Tab 325 Mg Tab PO 12/17/23 13:10 Q6HR PRN Mild Pain (Scale 1 to 3) Hydrocodone Bitart/Acetaminophen 1 each 11/17/23 13:09 Hydrocodone/Apap 5-325mg 1 Each Tab PO 12/17/23 13:10 Q4HR PRN Moderate Pain (Scale 4 to 6) Amlodipine Besylate 10 mg 11/17/23 21:00 Amlodipine 10 Mg Tab PO 12/17/23 21:01 HS JUAN JOSÉ Apixaban 5 mg 11/17/23 21:00 Apixaban 5 Mg Tab PO 12/17/23 21:01 BID JUAN JOSÉ Protocol Atorvastatin Calcium 20 mg 11/17/23 21:00 Atorvastatin 20 Mg Tab PO 12/17/23 21:01 HS JUAN JOSÉ Flecainide Acetate 50 mg 11/17/23 21:00 Flecainide 50 Mg Tab PO 12/17/23 21:01 Q12HR JUAN JOSÉ Sodium Chloride 1,000 mls @ 20 mls/hr 11/17/23 05:57 Saline 0.9% IV 12/17/23 05:58 .Q24H [facility] Acetaminophen 1,000 mg/ IV 100 mls @ 400 mls/hr 11/17/23 13:09 Solution IVPB 11/17/23 13:23 ONCE ONE Metformin HCl 500 mg 11/18/23 09:00 Metformin 500 Mg Tab PO 12/18/23 09:01 [facility] Non-Formulary Medication 90 units 11/18/23 09:00 Insulin Glargine,Hum.Rec.Anlog [Lantus Solostar Pen] SQ 12/18/23 09:01 [facility] Non-Formulary Medication 10 unit 11/18/23 09:00 Insulin Glulisine [Apidra Solostar Pen] SQ 12/18/23 09:01 [facility] Non-Formulary Medication 1 tab 11/18/23 09:00 Losartan/Hydrochlorothiazide [Losartan-Hctz 100-25 Mg Tab] PO 12/18/23 09:01 [facility] Sertraline HCl 50 mg 11/18/23 09:00 Sertraline 50 Mg Tab PO 12/18/23 09:01 [facility] Sodium Chloride 12 ml 11/17/23 13:09 Sodium Chloride 0.9% Flush 10 Ml Syringe IV 12/17/23 13:10 Q12HR PRN Line Flush Intake and Output 11/16/23 11/17/23 11/17/23 22:59 06:59 14:59 Intake Total 681 Balance 681 Intake: IV 681 Other: Weight 119.3 kg Patient Weight 11/18/23 06:59 Weight 119.3 kg 11/17/23 08:10 11/17/23 09:27
--- NOTE | 2023-11-17 13:33 | P.EPPROC ---
- EP Procedure Note Electrophysiology Procedure Note: PROCEDURE A. fib ablation with pulmonary vein isolation DIAGNOSIS Paroxysmal Atrial fibrillation, symptomatic, refractory to therapy with flecainide RESULT No left atrial appendage mass seen on intracardiac echo LVH with preserved systolic function, prominent posterior pericardial stripe w ithout effusion Large common left-sided pulmonary veins, large right superior pulmonary vein The common left vein appeared arrhythmogenic Successful A. fib ablation/pulmonary vein isolation of all veins using cryo- ablation Complete entrance block in all 4 veins confirmed No evidence for phrenic nerve injury Esophageal deflection YES , left-sided esophagus PROCEDURE DETAILS Written informed consent prior to procedure. Patient brought to the EP lab. General anesthesia given. Heparin administered. A city maintained above 300 seconds Both groins prepped and draped per protocol and venous sheaths placed. Esophagus intubated, circa catheter for temperature monitoring an endoscope for possible esophageal deflection. Phrenic nerve monitoring performed. Esophageal temperature monitoring pe rformed. Esophageal deflection performed if circa catheter overlapping with the balloon or circa temperature less than 27.5C Intracardiac echocardiography performed. Pericardium evaluated. Left atrial appendage evaluated. Left atrium evaluated along with pulmonary veins Transseptal catheterization performed under fluoroscopic guidance and intracardiac echo guidance Cryoablation sheath exchanged, balloon catheter along with achieve catheter placed in the left atrium. Pulmonary veins isolated in the following sequence: Left superior pulmonary vein followed by left inferior pulmonary vein, followed by right inferior pulmonary vein and lastly right superior pulmonary vein. Phrenic nerve stimulation along with capture thresholds within the SVC and right superior pulmonary vein to identify the phrenic nerve proximity to the cryo- balloon. Pulmonary veins isolated and confirmed with entrance and exit block. Phrenic nerve integrity confirmed at the end of the procedure The right superior pulmonary vein was very large. Cryoablation of the superior branch and the inferior branch performed separately. Cryoablation outside the right superior at the level of the roof performed Occasional dissociated pulmonary vein signals. They persisted despite SVC pacing The left-sided veins were common. This is a very large common loss. Catheter manipulation within the left common vein induce bursts of A. fib Multiple ablations of shorter duration performed in the antral area Complete isolation confirmed. Thereafter catheter manipulation did not induce any further atrial fibrillation This took a longer time than usual for both the right superior and the left common veins and required multiple cryoablation lesions to achieve antral level isolation Diagnostic catheters for the high right atrium, His bundle, coronary sinus placed. LA and RA pressures recorded RA pressure: 19/07/12 LA pressure: 22/04/13 Diagnostic EP study with coronary sinus pacing and recording Baseline measurements: Sinus cycle length 778 ms, NE interval 180 ms, QRS 180 ms and QT interval 429 ms AH interval 56 ms and HV interval 58 ms Sinus node recovery times at 600, 540 ms were 913, 1020 and 1029 ms, normal AV node Wenckebach block 350 ms High-dose Isuprel employed and burst stimulation was performed from the coronary sinus from 400 ms down to 300 ms Burst stimulation performed from the high right atrium from 300 ms down to 200 ms No atrial fibrillation induced Venous sheaths were removed and hemostasis assured with a closure device. Patient extubated and transferred to recovery Increase procedural time It took a longer time than usual to isolate the right superior pulmonary vein on accounts of its size It took a longer time than usual to isolate the left-sided veins that this was a common os and a very large one with very large individual branches/tributaries PROCEDURES PERFORMED Diagnostic EP study CS pacing and recording Left and right transseptal catheterization Catheter the mapping of the tachycardia Intracardiac echocardiography Pulmonary vein isolation with transseptal and comprehensive EPS, [id number] Extended procedure duration Drug infusion, [id number]
--- NOTE | 2023-11-17 13:34 | P.PRLE ---
RE: Tulio Espinosa Dear Ric Antunez underwent pulmonary vein isolation successfully for management of paroxysmal atrial fibrillation that is breaking through on flecainide He will continue anticoagulation lifelong since he is a diabetic with hypertension with left ventricular hypertrophy Thank you for entrusting me with the care of the patient Warm regards Sincerely Guilherme Hairston
[2023-11-17] MEDS ORDERED: ACETAMINOPHEN IV (For NPO) 1,000 MG in EMPTY BAG 1 BAG IVPB ONE (16:15)
[2023-11-17 17:12] LABS: Glucose,Whole Blood 164 mg/dL (70-110)
[2023-11-17] MEDS: SODIUM CHLORIDE 0.9% 1,000 ML IV SCH (17:14)
[2023-11-17] MEDS: APIXABAN 5 MG TAB PO SCH (20:25)
[2023-11-17] MEDS: FLECAINIDE 50 MG TAB PO SCH (20:25)
[2023-11-17 20:29] LABS: LDL Cholesterol,Calculated 74.6 mg/dL (0.0-131.0)
[2023-11-17] MEDS ORDERED: ATORVASTATIN 20 MG TAB PO SCH (21:00)
[2023-11-17] MEDS ORDERED: amLODIPine 10 MG TAB PO SCH (21:00)
[2023-11-18] MEDS: SODIUM CHLORIDE 0.9% 1,000 ML IV SCH (04:39)
[2023-11-18 05:10] VITALS: PULSE 89
[2023-11-18 06:23] LABS: Glucose,Whole Blood 150 mg/dL (70-110)
[2023-11-18] MEDS ORDERED: INSULIN DETEMIR (LEVEMIR) 100 UNIT/ML SYR SQ SCH (07:00)
[2023-11-18 08:41] VITALS: BP 128/71; RESP 17; TEMP 98.5
[2023-11-18] MEDS: APIXABAN 5 MG TAB PO SCH (08:47)
[2023-11-18] MEDS: FLECAINIDE 50 MG TAB PO SCH (08:47)
[2023-11-18] MEDS ORDERED: LOSARTAN-HCTZ 50-12.5 MG 1 EACH TAB PO SCH (09:00)
[2023-11-18] MEDS ORDERED: INSULIN ASPART (NovoLOG) 100 UNIT/ML VIAL SQ SCH (09:00)
[2023-11-18] MEDS ORDERED: SERTRALINE 50 MG TAB PO SCH (09:00)
[2023-11-19] MEDS ORDERED: metFORMIN 500 MG TAB PO SCH (13:00)
== END 2023-11-18 11:02 | disposition home or self-care (01) ==
LOC: CATHEP 07:46 → 6NMEDSUR 12:38 → CATHEP 11-18 11:02
PROVIDERS: ATTEND Internal Medicine Clinical Cardiac Electrophysiology
DX: I48.0 Paroxysmal atrial fibrillation (principal); I44.1 Atrioventricular block, second degree; E11.9 Type 2 diabetes mellitus without complications; I10 Essential (primary) hypertension; E78.5 Hyperlipidemia, unspecified; G47.33 Obstructive sleep apnea (adult) (pediatric); Z79.01 Long term (current) use of anticoagulants; Z79.84 Long term (current) use of oral hypoglycemic drugs; Z79.4 Long term (current) use of insulin; Z79.899 Other long term (current) drug therapy; Z85.828 Personal history of other malignant neoplasm of skin; Z98.890 Other specified postprocedural states
CPT/HCPCS: 93623; 93656; 86900; 86901; 80053; 80061; 84443; 85025; 86850; C1894 ×2; C1769 ×3; C1760; C1730 ×2; C1759; C1893; C1733; C1766; J2001; J0131; Q9967; J1644

== ENCOUNTER → 2024-02-04 | Outpatient (CLI) | payer MEDICARE ==
[2024-02-04 15:40] LABS: ALT 10 U/L (10-49); AST 14 U/L (14-35); Albumin 4.1 g/dL (3.8-4.9); Albumin/Globulin Ratio 1.52 Ratio (1.60-3.17); Alkaline Phosphatase 126 U/L (41-126); Blood Urea Nitrogen 15.6 mg/dL (9.0-27.0); Calcium 9.6 mg/dL (8.7-10.3); Carbon Dioxide 28.7 mmol/L (21.6-31.8); Chloride 100 mmol/L (96-109); Chol/HDL Ratio 4.14 Ratio; Globulin 2.7 g/dL (1.6-3.3); Glucose 111 mg/dL (70-110); LDL Cholesterol,Calculated 71.7 mg/dL (0.0-131.0); Potassium 3.5 mmol/L (3.5-5.5); Sodium 140 mmol/L (135-145); Total Bilirubin 0.6 mg/dL (0.3-1.2); Total Protein 6.8 g/dL (6.2-8.2)
[2024-02-04 15:47] LABS: Basophils # (A) 0.05 X 10*3/uL (0.00-0.10); Basophils % (A) 0.8 %; Eosinophils # (A) 0.14 X 10*3/uL (0.04-0.35); Eosinophils % (A) 2.1 %; HCT 50.7 % (39.6-50.0); HGB 16.3 g/dL (13.0-17.0); Lymphocytes # (A) 1.93 X 10*3/uL (0.90-5.00); Lymphocytes % (A) 29.3 %; MCH 27.7 pg (27.0-32.0); MCHC 32.1 g/dL (32.0-37.0); MCV 86.1 FL (80.0-97.0); Mean Platelet Volume 9.4 FL (9.5-12.2); Monocytes # (A) 0.48 X 10*3/uL (0.20-1.00); Monocytes % (A) 7.3 %; NRBC Per 100 WBC 0 X 10*3/uL (0.00-0.01); Neutrophils # (A) 3.96 X 10*3/uL (1.80-7.70); Platelet Count 283 X 10*3/uL (140-440); RBC 5.89 X 10*6/uL (4.40-5.60); RDW 15.5 % (11.5-14.5); WBC 6.59 X 10*3/uL (4.50-10.00)
== END | disposition home or self-care (01) ==
LOC: LABWHC1 08:50
PROVIDERS: ATTEND Family Medicine
DX: I10 Essential (primary) hypertension (principal); E66.9 Obesity, unspecified; E11.9 Type 2 diabetes mellitus without complications; E78.5 Hyperlipidemia, unspecified
CPT/HCPCS: 36415; 80053; 80061; 83036; 85025

== ENCOUNTER → 2025-03-21 | Outpatient (CLI) | payer MEDICARE | END | disposition home or self-care (01) | LOC: RADMRIMAIN 06:51 | PROVIDERS: ATTEND Urology | DX: Z53.9 Procedure and treatment not carried out, unspecified reason (principal) ==